=== PATIENT | male | born 1970 ===

== ENCOUNTER 2016-09-14 09:45 | Inpatient (IN) | payer OTHER ==
--- NOTE | 2016-09-14 10:17 | C.PDOC ---
History Of Present Illness 46 year old patient, with a past medical history of pulmonary embolism, CHF, kidney stones, gall bladder disease, bypass for 3 vessels about 1 year ago, prior MS and cardiac arrest, presents to the ED complaining of chest pain that began this morning. Patient denies palpitations, shortness of breath, nausea, vomiting, abdominal pain, numbness or weakness. Time Seen by Provider: 09/14/16 09:50 Chief Complaint (Nursing): Chest Pain History Per: Patient History/Exam Limitations: no limitations Onset/Duration Of Symptoms: Hrs (this morning) Current Symptoms Are (Timing): Still Present Context: Other Severity: Mild Pain Scale Rating Of: 3 Quality: "Pain" Modifying Factors: None Exacerbating Factors: None Alleviating Factors: None Recent travel outside of the [place]: No Past Medical History Reviewed: Historical Data, Nursing Documentation, Vital Signs Vital Signs: Last Vital Signs Temp 97.8 F 09/14/16 18:38 Pulse 75 09/14/16 18:38 Resp 18 09/14/16 18:38 BP 121/80 09/14/16 18:38 Pulse Ox 100 09/14/16 18:38 - Medical History PMH: CHF, Gall Bladder Disease, Kidney Stones, Pulmonary Embolism Family History: States: Unknown Family Hx - Social History Hx Alcohol Use: No Hx Substance Use: No - Immunization History Hx Tetanus Toxoid Vaccination: No Hx Influenza Vaccination: Yes Hx Pneumococcal Vaccination: No Review Of Systems Except As Marked, All Systems Reviewed And Found Negative. Cardiovascular: Positive for: Chest Pain. Negative for: Palpitations Respiratory: Negative for: Shortness of Breath Gastrointestinal: Negative for: Nausea, Vomiting, Abdominal Pain Neurological: Negative for: Weakness, Numbness Physical Exam - Physical Exam Appears: Non-toxic, No Acute Distress Skin: Warm, Dry Head: Atraumatic, Normacephalic Eye(s): bilateral: Normal Inspection, PERRL, EOMI Oral Mucosa: Moist Neck: Normal ROM, Supple Chest: Symmetrical, No Tenderness Cardiovascular: Rhythm Regular Respiratory: Normal Breath Sounds, No Rales, No Rhonchi, No Wheezing Gastrointestinal/Abdominal: Soft, No Tenderness Back: Normal Inspection, No CVA Tenderness Extremity: Normal ROM Neurological/Psych: Oriented x3, Normal Speech, Normal Cognition, Normal Motor, Normal Sensation Gait: Steady ED Course And Treatment - Laboratory Results Result Diagrams: 09/14/16 10:40 09/14/16 10:40 ECG: Interpreted By Me, Viewed By Me ECG Rhythm: Sinus Rhythm Interpretation Of ECG: T wave abnormality in the lateral leads. Q waves in inferior leads Rate From EC (bpm) O2 Sat by Pulse Oximetry: 100 (room air) Pulse Ox Interpretation: Normal Progress Note: Case was d/w who accepted patient to [facility] for observation. Disposition - Disposition Disposition: HOSPITALIZED Disposition Time: 14:52 Condition: FAIR - Clinical Impression Clinical Impression: Chest pain - PA / HEADING PINNER / Resident Statement MD/DO has reviewed & agrees with the documentation as recorded. - Scribe Statement The provider has reviewed the documentation as recorded by the Scribe Danielle Paige All medical record entries made by the Scribe were at my direction and personally dictated by me. I have reviewed the chart and agree that the record accurately reflects my personal performance of the history, physical exam, medical decision making, and the department course for this patient. I have also personally directed, reviewed, and agree with the discharge instructions and disposition. Decision To Admit - Pt Status Changed To: Hospital Disposition Of: Observation - . Bed Request Type: Telemetry Admitting Physician: Jorge Franco Patient Diagnosis: Chest pain
[2016-09-14 10:52] LABS: BASO % 0.4 % (0.0-2.0); EOS # 0.2 K/uL (0.0-0.7); EOS % 2.5 % (0.0-4.0); HEMATOCRIT 41.5 % (35.0-51.0); LYMPH % 32.2 % (20.0-40.0); MEAN CELL VOLUME 117.8 fL (80.0-94.0); MEAN CORPUSCULAR HEMOGLOBIN 39.9 pg (27.0-31.0); MEAN CORPUSCULAR HGB CONC 33.9 g/dL (33.0-37.0); MEAN PLATELET VOLUME 10.1 fL (7.2-11.7); MONO # 0.5 K/uL (0.0-0.8); MONO % 8.2 % (0.0-10.0); NRBC % 0.1 % (0.0-2.0); RED CELL DISTRIBUTION WIDTH 13.9 % (11.5-14.5); WHITE BLOOD COUNT 6.1 K/uL (4.8-10.8)
[2016-09-14 11:12] LABS: CHLORIDE 101 mmol/L (98-107); POTASSIUM 4.1 mmol/L (3.6-5.2); SODIUM 140 mmol/L (132-148)
[2016-09-14 11:14] LABS: BILIRUBIN,TOTAL 0.7 mg/dL (0.2-1.3); CARBON DIOXIDE 27 mmol/L (22-30); GFR AFRICAN-AMERICAN > 60
[2016-09-14 11:15] LABS: ALB/GLOB RATIO 2.3 (1.0-2.1); ALKALINE PHOSPHATASE 88 U/L (38-126); ALT/SGPT 44 U/L (21-72); AST/SGOT 27 U/L (17-59); BLOOD UREA NITROGEN 14 mg/dL (9-20); CALCIUM 8.9 mg/dl (8.6-10.4); GLUCOSE,RANDOM 88 mg/dL (75-110); TOTAL PROTEIN 7.5 g/dL (6.3-8.3)
--- NOTE | 2016-09-14 12:35 | RAD ---
PROCEDURE: CHEST RADIOGRAPH, 1 VIEW HISTORY: chest pain COMPARISON: None available. FINDINGS: LUNGS: Moderate venous congestion. Patchy left basilar airspace opacity. PLEURA: As above. CARDIOVASCULAR: Cardiomegaly. Status post median sternotomy and CABG. OSSEOUS STRUCTURES: No significant abnormalities. VISUALIZED UPPER ABDOMEN: Normal. OTHER FINDINGS: None. IMPRESSION: Moderate venous congestion. Patchy left basilar airspace opacity.
[2016-09-14] MEDS ORDERED: Iodixanol 320 MG/ML 100 ML BOTTLE IV ONE (13:40)
--- NOTE | 2016-09-14 14:17 | CT ---
PROCEDURE: CT Chest with contrast (Pulmonary Angiogram) HISTORY: Right CP, h/o PE COMPARISON: None available. TECHNIQUE: Axial computed tomography images were obtained of the chest in the pulmonary arterial phase of enhancement. Coronal and sagittal reformatted images were created and reviewed. Intravenous contrast dose: 100 mL Visipaque 320 Radiation dose: Total exam DLP = 421.3 mGy-cm. This CT exam was performed using one or more of the following dose reduction techniques: Automated exposure control, adjustment of the mA and/or kV according to patient size, and/or use of iterative reconstruction technique. FINDINGS: PULMONARY ARTERIES: Unremarkable. No pulmonary embolism. AORTA: No acute findings. No thoracic aortic aneurysm. LUNGS: Nonspecific mild ground-glass opacity seen. . No nodule, mass or pulmonary consolidation. PLEURAL SPACES: Unremarkable. No effusion or pneuomothorax. HEART: The heart is mildly to moderately enlarged. No significant pericardial effusion. LYMPH NODES: No lymphadenopathy. BONES, CHEST WALL: Unremarkable. No fracture or destructive lesion OTHER FINDINGS: Partially imaged small calcification at the left kidney. Correlate clinically for nephrolithiasis. IMPRESSION: No evidence of pulmonary embolus Cardiomegaly. Mild ground-glass opacity more prominent at the posterior dependent portion of the lungs may be due to pulmonary congestion. No pleural effusion.
--- NOTE | 2016-09-14 15:45 | CP.PCM.HP ---
<Jose Guadalupe Bui - Last Filed: 09/14/16 16:32> History of Present Illness - History of Present Illness History of Present Illness: CC: chest pain HPI: 46M PMHx NC s/p CABG 08/2015, PE 08/2015, current smoker presented with chest pain. Pt woke up this morning and then experienced the chest pain when he was lying on bed. Pt said chest pain was on the right with stabbing/pulling sensation and lasted 20 seconds. Pt rubbed his chest which also helped with the pain. 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 He took his ASA and the rest of his medicine but threw up after 10 minutes. Pt also said he ran out of Toprol last week. Pt has these symptoms for the past month, around 2- 3 times a week and associated with lightheadedness and blurry vision. Pt said he coughs when he lay flat but denied SOB after long walks. Pt also denied fever , chills, palpitations, SOB, diaphoresis, abdominal pain, constipation, diarrhea , urinary symptoms. Per pt, he experienced cardiac arrest in 09/09/15 and was resuscitated and intubated in [place]. Pt later had 3 vessels CABG but developed PE subsequently, and was on Coumadin for 3 months. PMHx: seen above PSHx: CABG 2015 FMHx: father had NC at 64, mother has DM Social: smoked 4 cigarettes a day for past 28 years, stopped after NC but resumed 3 months ago, denied ETOH or drugs PMD: [place] Present on Admission - Present on Admission Any Indicators Present on Admission: No Review of Systems - Constitutional Constitutional: absent: Anorexia, Fever, Weakness - EENT Eyes: Change in Vision Ears: absent: Ear Pain Nose/Mouth/Throat: absent: Mouth Pain - Cardiovascular Cardiovascular: Chest Pain, Chest Pain at Rest, Chest Pain with Activity. absent: Claudication, Diaphoresis, Dyspnea, Edema - Respiratory Respiratory: absent: Cough, Dyspnea, Wheezing - Gastrointestinal Gastrointestinal: absent: Abdominal Pain, Constipation, Diarrhea, Nausea, Vomiting - Genitourinary Genitourinary: absent: Dysuria - Neurological Neurological: absent: Abnormal Gait, Dizziness, Numbness - Psychiatric Psychiatric: absent: Anxiety Past Patient History - Past Social History Smoking Status: Light Smoker < 10 Cigarettes Daily - CARDIAC Hx Congestive Heart Failure: Yes - PULMONARY Hx Pulmonary Embolism: Yes - RENAL Hx Kidney Stones: Yes - GASTROINTESTINAL Hx Gall Bladder Disease: Yes - PSYCHIATRIC Hx Substance Use: No - SURGICAL HISTORY Hx Surgeries: Yes Hx Open Heart Surgery: Yes (CABG X4) - ANESTHESIA Hx Anesthesia: Yes Hx Anesthesia Reactions: No Meds Allergies/Adverse Reactions: Allergies Allergy/AdvReac Type Severity Reaction Status Date / Time No Known Allergies Allergy Verified 09/14/16 10:08 Physical Exam - Constitutional Appears: Non-toxic, No Acute Distress - Head Exam Head Exam: NORMAL INSPECTION, NORMOCEPHALIC - Eye Exam Eye Exam: Normal appearance Pupil Exam: NORMAL ACCOMODATION - Respiratory Exam Respiratory Exam: Clear to Auscultation Bilateral, NORMAL BREATHING PATTERN. absent: Rales, Rhonchi, Wheezes - Cardiovascular Exam Cardiovascular Exam: REGULAR RHYTHM, +S1, +S2. absent: Gallop, JVD, Rubs - GI/Abdominal Exam GI & Abdominal Exam: Normal Bowel Sounds, Soft. absent: Tenderness - Extremities Exam Extremities exam: Negative for: pedal edema - Neurological Exam Neurological exam: Alert, Oriented x3 - Psychiatric Exam Psychiatric exam: Normal Mood - Skin Skin Exam: Intact Results - Vital Signs Recent Vital Signs: Last Vital Signs Temp 97.4 F L 09/14/16 09:50 Pulse 76 09/14/16 14:42 Resp 18 09/14/16 14:42 BP 123/70 09/14/16 14:42 Pulse Ox 100 09/14/16 14:52 - Labs Result Diagrams: 09/14/16 10:40 09/14/16 10:40 Assessment & Plan - Assessment and Plan (Free Text) Assessment: Chest pain GISELE negative x1. EKG showed NSR at 71, LVH, inverted T on lateral leads and Q waves on lead III. Chest CT negative for PE. CXR showed cardiomegaly, left basilar opacity and venous congestion. Will start Lovenox 65mg SC q12H due to significant cardiac history. Cardio Dr. Mckinnon consulted, help appreciated. Tylenol PRN for pain. Continue home meds: ASA 81mg PO daily, Lasix 20mg PO daily, LIsinopril 2.5mg PO daily, Crestor 20mg PO HS, Lopressor 25mg PO q12H. F/U ECHO. F/U UDS. F/U A1c. F/U HLD. F/U TSH Hx of NC and PE See above. Vision changes Associated with lightheadedness. Currently asymptomatic. F/U head CT. F/U carotid US. Prophylactic measure Lovenox, SCD, Protonix. <JoanJorge Susan - Last Filed: 09/14/16 17:26> Results - Vital Signs Recent Vital Signs: Last Vital Signs Temp 97.4 F L 09/14/16 09:50 Pulse 76 09/14/16 14:42 Resp 18 09/14/16 14:42 BP 123/70 09/14/16 14:42 Pulse Ox 100 09/14/16 14:52 - Labs Result Diagrams: 09/14/16 10:40 09/14/16 10:40 Attending/Attestation - Attestation I have personally seen and examined this patient.: Yes I have fully participated in the care of the patient.: Yes I have reviewed all pertinent clinical information: Yes Notes (Text): 09/14/16 17:23 Medical Attending: Patient was seen and examined by me with family members present at bedside. Patient was ok with this. Agree with the above note by the medical claims representative. This is a relatively young man with an extensive cardiac history as desribed above in the resident note. Including NC, CABG, PE, and cardiac arrest. In the ER a CTA was done and was negative for PE, lung appeared to be stable as well. The first cardiac enzyme was ok. EKG showed a lot of T wave inversions as well as a Q wave presentation in lead 3 Will check cardiac enzymes, echo, and start lovenox SC BID @ 65 mg Will try to get cardiology evalutaion as well It should be noted that the patient is still smoking. I explained to family that this is a major risk factor he can modify. thank you Jorge Franco 09/14/16 17:26
[2016-09-14] MEDS ORDERED: Metoprolol Succinate 50 mg XL Tab PO SCH (16:30)
--- NOTE | 2016-09-14 17:29 | CT ---
PROCEDURE: CT HEAD WITHOUT CONTRAST. HISTORY: lightheadedness, change in vision COMPARISON: None available. TECHNIQUE: Axial computed tomography images were obtained through the head/brain without intravenous contrast. Radiation dose: Total exam DLP = 936.33 mGy-cm. This CT exam was performed using one or more of the following dose reduction techniques: Automated exposure control, adjustment of the mA and/or kV according to patient size, and/or use of iterative reconstruction technique. FINDINGS: HEMORRHAGE: No intracranial hemorrhage. BRAIN: No mass effect or edema. No atrophy or chronic microvascular ischemic changes. VENTRICLES: Unremarkable. No hydrocephalus. CALVARIUM: Unremarkable. PARANASAL SINUSES: Unremarkable as visualized. No significant inflammatory changes. MASTOID AIR CELLS: Opacification of both mastoids and partial opacification of the middle ears bilaterally suspicious for otomastoiditis. OTHER FINDINGS: None. IMPRESSION: No evidence of acute intracranial hemorrhage intracranial collection mass effect or midline shift. Suspicious for bilateral otomastoiditis.
[2016-09-14 17:37] LABS: URINE BILIRUBIN NEGATIVE (NEGATIVE); URINE BLOOD NEGATIVE (NEGATIVE); URINE COLOR Straw (YELLOW); URINE GLUCOSE (UA) NORMAL (Normal); URINE KETONE NEGATIVE (NEGATIVE); URINE LEUKOCYTE ESTERASE NEG Leu/uL (Negative); URINE PROTEIN NEGATIVE (NEGATIVE); URINE UROBILINOGEN NORMAL mg/dL (0.2-1.0); WBC URINE < 1 /hpf (0-5)
[2016-09-14] MEDS: Enoxaparin 80 mg Syringe SC SCH (17:56)
[2016-09-15 00:32] LABS: THYROID STIMULATING HORMONE 0.87 mIU/L (0.46-4.68)
[2016-09-15] MEDS: Enoxaparin 80 mg Syringe SC SCH ×2 (05:33→16:55)
[2016-09-15 06:41] LABS: BASO % 0.3 % (0.0-2.0); EOS # 0.1 K/uL (0.0-0.7); HEMATOCRIT 41.2 % (35.0-51.0); LYMPH # 2.3 K/uL (1.0-4.3); LYMPH % 35.2 % (20.0-40.0); MEAN CORPUSCULAR HEMOGLOBIN 40.9 pg (27.0-31.0); MEAN CORPUSCULAR HGB CONC 34.9 g/dL (33.0-37.0); MONO # 0.5 K/uL (0.0-0.8); MONO % 8.3 % (0.0-10.0); RED CELL DISTRIBUTION WIDTH 13.8 % (11.5-14.5); WHITE BLOOD COUNT 6.4 K/uL (4.8-10.8)
[2016-09-15 06:54] LABS: CHLORIDE 101 mmol/L (98-107); SODIUM 137 mmol/L (132-148)
[2016-09-15 06:55] LABS: POTASSIUM 3.9 mmol/L (3.6-5.2)
[2016-09-15 06:57] LABS: ALB/GLOB RATIO 1.6 (1.0-2.1); ALKALINE PHOSPHATASE 85 U/L (38-126); AST/SGOT 29 U/L (17-59); BILIRUBIN,TOTAL 0.7 mg/dL (0.2-1.3); BLOOD UREA NITROGEN 16 mg/dL (9-20); CARBON DIOXIDE 25 mmol/L (22-30); GFR AFRICAN-AMERICAN > 60; GLUCOSE,RANDOM 92 mg/dL (75-110); TOTAL PROTEIN 6.6 g/dL (6.3-8.3)
[2016-09-15 06:58] LABS: ALT/SGPT 41 U/L (21-72); CALCIUM 8.7 mg/dl (8.6-10.4)
[2016-09-15] MEDS ORDERED: Clindamycin 300 MG in Sodium Chloride 0.9% 50 ML IVPB SCH (09:15)
[2016-09-15] MEDS: Pantoprazole 40 mg EC Tab PO SCH (09:34)
[2016-09-15] MEDS: Clindamycin 600mg/50ml D5W 600 MG/50 ML VIAL IVPB SCH ×2 (09:45→17:00)
--- NOTE | 2016-09-15 16:30 | CP.PCM.PN ---
<Mk Mcarthur - Last Filed: 09/15/16 16:30> Subjective - Date & Time of Evaluation Date of Evaluation: 09/15/16 Time of Evaluation: 16:30 - Subjective Subjective: Med progress note. Attending: Dr. Caldera Pt seen and examined at bedside. No acute distress. No events overnight. CP resolved. Started iv abx for mastoiditis, ent consult pending. Objective - Vital Signs/Intake and Output Vital Signs (last 24 hours): Temp Pulse Resp BP Pulse Ox 97.5 F L 82 17 112/69 100 09/15/16 08:00 09/15/16 08:00 09/15/16 08:00 09/15/16 09:34 09/15/16 08:00 Intake and Output: 09/15/16 09/15/16 06:59 18:59 Intake Total 200 Output Total 300 Balance -100 - Medications Medications: Current Medications Acetaminophen (Tylenol 325mg Tab) 650 mg PO Q6 PRN PRN Reason: moderate pain Aspirin (Ecotrin) 81 mg PO DAILY [facility] Last Admin: 09/15/16 09:34 Dose: 81 mg Enoxaparin Sodium (Lovenox) 65 mg SC Q12H [facility] Last Admin: 09/15/16 05:33 Dose: 65 mg Furosemide (Lasix) 20 mg PO DAILY [facility] Last Admin: 09/15/16 09:34 Dose: 20 mg Clindamycin Phosphate (Cleocin) 600 mg in 50 mls @ 100 mls/hr IVPB Q8H [facility] Last Admin: 09/15/16 09:45 Dose: 100 mls/hr Lisinopril (Zestril) 2.5 mg PO DAILY [facility] Last Admin: 09/15/16 09:34 Dose: 2.5 mg Metoprolol Tartrate (Lopressor) 25 mg PO Q12H [facility] Last Admin: 09/15/16 05:30 Dose: Not Given Pantoprazole Sodium (Protonix Ec Tab) 40 mg PO DAILY [facility] Last Admin: 09/15/16 09:34 Dose: 40 mg Pneumococcal Polyvalent Vaccine (Pneumovax 23 Vaccine) 0.5 ml SC .ONCE ONE Stop: 09/16/16 10:01 Rosuvastatin Calcium (Crestor) 20 mg PO HS [facility] Last Admin: 09/14/16 23:01 Dose: 20 mg - Labs Labs: 09/15/16 06:29 09/15/16 06:29 PT 11.6 SECONDS (9.7-12.2) 09/14/16 10:40 INR 1.0 09/14/16 10:40 APTT 32 SECONDS (21-34) 09/14/16 10:40 - Constitutional Appears: Non-toxic, No Acute Distress - Head Exam Head Exam: ATRAUMATIC, NORMAL INSPECTION, NORMOCEPHALIC - Eye Exam Eye Exam: EOMI - ENT Exam ENT Exam: Mucous Membranes Moist - Neck Exam Neck Exam: Full ROM, Normal Inspection - Respiratory Exam Respiratory Exam: NORMAL BREATHING PATTERN. absent: Respiratory Distress - Cardiovascular Exam Cardiovascular Exam: +S1, +S2 - GI/Abdominal Exam GI & Abdominal Exam: Soft, Normal Bowel Sounds. absent: Tenderness - Extremities Exam Extremities Exam: Full ROM, Normal Inspection - Neurological Exam Neurological Exam: Alert, Awake, Oriented x3 - Psychiatric Exam Psychiatric exam: Normal Affect, Normal Mood - Skin Skin Exam: Dry, Intact, Normal Color, Warm Assessment and Plan - Assessment and Plan (Free Text) Assessment: This is a 46 yo male with Chest pain GISELE negative x2 EKG showed NSR at 71, LVH, inverted T on lateral leads and Q waves on lead III. Chest CT negative for PE. CXR showed cardiomegaly, left basilar opacity and venous congestion. Will start Lovenox 65mg SC q12H due to significant cardiac history. Cardio Dr. Mckinnon consulted, help appreciated. Tylenol PRN for pain. Continue home meds: ASA 81mg PO daily, Lasix 20mg PO daily, LIsinopril 2.5mg PO daily, Crestor 20mg PO HS, Lopressor 25mg PO q12H. F/U ECHO. F/U UDS>> negative F/U A1c>> 4.6 F/U lipid profile F/U TSH Hx of UT and PE See above. Ear pain secondary to B/L otomastoiditis F/U head CT>>> positive for b/l otomastoiditis will start IV clindamycin 600 mg q 8 hrs, f/u blood cultures ENT consult. Dr. Gaona. recs appreciated. F/U carotid US. Prophylactic measure Lovenox, SCD, Protonix. discussed with Dr. Caldera. <Josh Caldera - Last Filed: 10/23/16 17:09> Objective - Vital Signs/Intake and Output Vital Signs (last 24 hours): Temp Pulse Resp BP Pulse Ox 97.6 F 61 20 117/70 99 09/16/16 16:02 09/16/16 16:02 09/16/16 16:02 09/16/16 16:02 09/16/16 16:02 - Labs Labs: 09/15/16 06:29 09/15/16 06:29 PT 11.6 SECONDS (9.7-12.2) 09/14/16 10:40 INR 1.0 09/14/16 10:40 APTT 32 SECONDS (21-34) 09/14/16 10:40 Attending/Attestation - Attestation I have personally seen and examined this patient.: Yes I have fully participated in the care of the patient.: Yes I have reviewed all pertinent clinical information, including history, physical exam and plan: Yes Notes (Text): This is a 46 yo male with Chest pain need to rule out acs, ruled out pe, GISELE negative x2 EKG showed NSR at 71, LVH, inverted T on lateral leads and Q waves on lead III. Chest CT negative for PE. CXR showed cardiomegaly, left basilar opacity and venous congestion. Will start Lovenox 65mg SC q12H due to significant cardiac history. Cardio Dr. Mckinnon consulted, help appreciated. Tylenol PRN for pain. Continue home meds: ASA 81mg PO daily, Lasix 20mg PO daily, LIsinopril 2.5mg PO daily, Crestor 20mg PO HS, Lopressor 25mg PO q12H. F/U ECHO. F/U UDS>> negative F/U A1c>> 4.6 F/U lipid profile F/U TSH Hx of UT and PE See above. Ear pain secondary to B/L otomastoiditis F/U head CT>>> positive for b/l otomastoiditis will start IV clindamycin 600 mg q 8 hrs, f/u blood cultures ENT consult. Dr. Gaona. recs appreciated. F/U carotid US.
--- NOTE | 2016-09-15 21:33 | CON ---
DATE: 09/15/2016 REASON FOR CONSULTATION: Possible mastoiditis. HISTORY OF PRESENT ILLNESS: This is a 46-year-old male who complains of hearing loss on the left for 1 month on and off, mild in intensity, no pain, no discharge. PAST MEDICAL HISTORY: As noted in the chart by me. MEDICATIONS: As noted in the chart by me. PHYSICAL EXAMINATION: HEAD: Atraumatic, normocephalic. FACE: Good facial movements bilaterally. CONSTITUTIONAL: Well-developed, well-nourished. COMMUNICATION: Communicates very appropriately. EXTERNAL NOSE AND EARS: No masses, no lesions, no erythema, no edema. EARS: TM intact, mild fluid noted behind the left TM. No masses, no lesions. ORAL CAVITY AND OROPHARYNX: No masses, no lesions, no erythema, no edema. NOSE: Deviated septum, no masses, no lesions, no erythema, no edema. LIPS, GUMS: No masses, no lesions, no erythema, no edema. NECK: Supple. THYROID: No thyromegaly, no goiter. LYMPH NODES: No lymphadenopathy of the neck. CT was reviewed by me showed mastoid opacification whi ch appears to be chronic on both sides and there is mild fluid in the middle ear space on both sides. ASSESSMENT: 1. Mastoiditis is not suspected. The patient has chronic mastoid problems; however, this is nonacut e. There is no postauricular edema, no pain, no discharge and the TM is intact. The patient had a t uning fork test done, which reveals lateralized to the left side, which is the side that the patient has hearing problems. Therefore, it is confirmed that the patient has otitis media on the left and n erica endoscopy was done. This should be dictated separately, which revealed no masses in the nasopha rynx. 2. Deviated septum. PLAN: The patient should continue on antibiotics for a total of 7 days. Follow up as an outpatient. Martell Gaona MD cc: [id number] TT: 09/15/2016 21:32:08 Confirmation # [id number] Dictation # [id number] cn
[2016-09-16] MEDS: Clindamycin 600mg/50ml D5W 600 MG/50 ML VIAL IVPB SCH ×3 (01:07→17:54)
[2016-09-16] MEDS: Enoxaparin 80 mg Syringe SC SCH (05:04)
--- NOTE | 2016-09-16 06:30 | OP ---
PROCEDURE DATE: 09/15/2016 PREOPERATIVE DIAGNOSIS: POSTOPERATIVE DIAGNOSIS: PROCEDURE: Nasal endoscopy. SIGNIFICANT FINDINGS: Nasopharyngeal mass not noted. PROCEDURE: The patient was placed in a seated position. The nose was decongested using Afrin. The nasal endoscope was passed on both sides, first on the left, then on the right in the middle inferior meatus on both sides. It was also passed into the nasopharynx. No masses or lesions were noted. N o erythema or edema was noted. The scope was removed. The patient tolerated the procedure well. Martell Gaona MD cc: [id number] TT: 09/15/2016 21:53:23 tn
--- NOTE | 2016-09-16 08:43 | CARD ---
APPROVED REPORT EXAM: Two-dimensional and M-mode echocardiogram with Doppler and color Doppler. Other Information Quality : GoodRhythm : NSR INDICATION Pulmonary Embolism Chest Pain Congestive Heart Failure CABG RISK FACTORS Smoking M-Mode DIMENSIONS RVDd1.94 (2.1-3.2cm)Left Atrium (MM)4.10 (2.5-4.0cm) IVSd1.11 (0.7-1.1cm)Aortic Root3.23 (2.2-3.7cm) LVDd5.62 (4.0-5.6cm)Aortic Cusp Exc.1.80 (1.5-2.0cm) PWd1.11 (0.7-1.1cm)FS (%) 26 % LVDs4.16 (2.0-3.8cm)LVEF (%)50 (>50%) Mitral Valve MV E Gzdsxovi07.4cm/sMV A Rpfwwkvs24.5cm/sE/A ratio1.3 TDI E/Lateral E'0.0E/Medial E'0.0 Tricuspid Valve TR Peak [id number]/sTR Peak Gr.[id number] LEFT VENTRICLE The left ventricle is normal size. There is normal left ventricular wall thickness. The left ventricular function is normal. The left ventricular ejection fraction is within the normal range. The Ejection Fraction is >55%. No regional wall motion abnormalities noted. The left ventricular diastolic function is normal. No left ventricle thrombus noted on this study. There is no ventricular septal defect visualized. There is no left ventricular aneurysm. There is no mass noted in the left ventricle. RIGHT VENTRICLE The right ventricle is normal size. There is normal right ventricular wall thickness. The right ventricular systolic function is normal. ATRIA The left atrium is borderline dilated. The right atrium size is normal. The interatrial septum is intact with no evidence for an atrial septal defect. AORTIC VALVE The aortic valve is normal in structure and function. No aortic regurgitation is present. There is no aortic valvular stenosis. There is no aortic valvular vegetation. MITRAL VALVE The mitral valve is normal in structure and function. There is no evidence of mitral valve prolapse. There is no mitral valve stenosis. There is no mitral valve regurgitation noted. TRICUSPID VALVE The tricuspid valve is normal in structure and function. There is mild tricuspid regurgitation. Right ventricular systolic pressure is estimated at 30-40 mmHg. There is mild pulmonary hypertension. There is no tricuspid valve prolapse or vegetation. There is no tricuspid valve stenosis. PULMONIC VALVE The pulmonary valve is normal in structure and function. There is no pulmonic valvular regurgitation. There is no pulmonic valvular stenosis. GREAT VESSELS The aortic root is normal in size. The ascending aorta is normal in size. The pulmonary artery is normal. The IVC is normal in size and collapses >50% with inspiration. PERICARDIAL EFFUSION The pericardium appears normal. There is no pleural effusion. <Conclusion> The left ventricle is normal size. The left ventricular ejection fraction is within the normal range. The Ejection Fraction is >55%. Right ventricular systolic pressure is estimated at 30-40 mmHg. no D septum
--- NOTE | 2016-09-16 08:57 | CARD ---
APPROVED REPORT EKG Measurement Heart [id number] <Conclusion> Normal sinus rhythm Possible Left atrial enlargement Inferior infarct, age undetermined T wave abnormality, consider lateral ischemia Abnormal ECG
[2016-09-16] MEDS: Pantoprazole 40 mg EC Tab PO SCH (09:30)
[2016-09-16] MEDS ORDERED: Pneumococcal 23-Valent Vaccine SC ONE (10:00)
[2016-09-16] MEDS ORDERED: Saccharomyces Boulardi 250 mg Cap PO SCH (11:15)
--- NOTE | 2016-09-16 11:29 | CP.PCM.PN ---
<Mk Mcarthur - Last Filed: 09/16/16 11:30> Subjective - Date & Time of Evaluation Date of Evaluation: 09/16/16 Time of Evaluation: 11:30 - Subjective Subjective: Medicine progress note. Attending: Dr. Oliva Pt seen and examined at bedside. No acute distress. No events overnight, lopressor dose lowered this morning. Will repeat ekg and discuss with cardio. Pt is day 2 clindamycin. Objective - Vital Signs/Intake and Output Vital Signs (last 24 hours): Temp Pulse Resp BP Pulse Ox 97.8 F 62 19 123/70 100 09/16/16 09:46 09/16/16 09:46 09/16/16 09:46 09/16/16 09:46 09/16/16 09:46 Intake and Output: 09/16/16 09/16/16 06:59 18:59 Intake Total 120 300 Output Total 0 200 Balance 120 100 - Medications Medications: Current Medications Acetaminophen (Tylenol 325mg Tab) 650 mg PO Q6 PRN PRN Reason: moderate pain Aspirin (Ecotrin) 81 mg PO DAILY [facility] Last Admin: 09/16/16 09:29 Dose: 81 mg Enoxaparin Sodium (Lovenox) 65 mg SC Q12H [facility] Last Admin: 09/16/16 05:04 Dose: 65 mg Furosemide (Lasix) 20 mg PO DAILY [facility] Last Admin: 09/16/16 09:29 Dose: 20 mg Clindamycin Phosphate (Cleocin) 600 mg in 50 mls @ 100 mls/hr IVPB Q8H [facility] Last Admin: 09/16/16 10:00 Dose: 100 mls/hr Lisinopril (Zestril) 2.5 mg PO DAILY [facility] Last Admin: 09/16/16 09:29 Dose: 2.5 mg Metoprolol Tartrate (Lopressor) 12.5 mg PO Q12 [facility] Last Admin: 09/16/16 09:34 Dose: 12.5 mg Pantoprazole Sodium (Protonix Ec Tab) 40 mg PO DAILY [facility] Last Admin: 09/16/16 09:30 Dose: 40 mg Rosuvastatin Calcium (Crestor) 20 mg PO HS [facility] Last Admin: 09/15/16 23:45 Dose: 20 mg Saccharomyces Boulardii (Florastor) 250 mg PO BID [facility] - Labs Labs: 09/15/16 06:29 09/15/16 06:29 PT 11.6 SECONDS (9.7-12.2) 09/14/16 10:40 INR 1.0 09/14/16 10:40 APTT 32 SECONDS (21-34) 09/14/16 10:40 - Constitutional Appears: Non-toxic, No Acute Distress - Head Exam Head Exam: ATRAUMATIC, NORMAL INSPECTION, NORMOCEPHALIC - Eye Exam Eye Exam: EOMI - ENT Exam ENT Exam: Mucous Membranes Moist - Neck Exam Neck Exam: Full ROM, Normal Inspection - Respiratory Exam Respiratory Exam: NORMAL BREATHING PATTERN. absent: Respiratory Distress - Cardiovascular Exam Cardiovascular Exam: +S1, +S2, Murmur - GI/Abdominal Exam GI & Abdominal Exam: Soft, Normal Bowel Sounds. absent: Tenderness - Extremities Exam Extremities Exam: Full ROM, Normal Inspection - Neurological Exam Neurological Exam: Alert, Awake, Oriented x3 - Psychiatric Exam Psychiatric exam: Normal Affect, Normal Mood - Skin Skin Exam: Dry, Intact, Normal Color, Warm Assessment and Plan - Assessment and Plan (Free Text) Assessment: This is a 46 yo male with extensive cardiac hx including cardiac arrest, PE, CABG, [place] presenting with (1) Chest pain GISELE negative x3 EKG showed NSR at 71, LVH, inverted T on lateral leads and Q waves on lead III>> > will repeat ekg today Chest CT negative for PE. CXR showed cardiomegaly, left basilar opacity and venous congestion. Will start Lovenox 65mg SC q12H due to significant cardiac history. Cardio Dr. Mckinnon consulted, help appreciated. Tylenol PRN for pain. Continue home meds: ASA 81mg PO daily, Lasix 20mg PO daily, LIsinopril 2.5mg PO daily, Crestor 20mg PO HS, Lopressor 12.5mg PO q12H. F/U ECHO>>> normal ef with rv systolic pressure at 30-40 mm hg F/U UDS>> negative F/U A1c>> 4.6 F/U lipid profile>>> pending F/U TSH Carotid dopplers pending (2) Hx of [place] and PE See above. (3) Ear pain secondary to otitis media F/U head CT>>> suspicious for b/l otomastoiditis>> Dr. Gaona does not think pt has mastoiditis. will start IV clindamycin 600 mg q 8 hrs, f/u blood cultures>>> blood negative thus far ENT consult. Dr. Gaona. recs appreciated. F/U carotid US. Will start florastor 250 BID (4) Prophylactic measure Lovenox, SCDs, Protonix 40 mg po daily discussed with Dr. Oliva. <Lynda Oliva V - Last Filed: 09/16/16 17:54> Objective - Vital Signs/Intake and Output Vital Signs (last 24 hours): Temp Pulse Resp BP Pulse Ox 97.6 F 61 20 117/70 99 09/16/16 16:02 09/16/16 16:02 09/16/16 16:02 09/16/16 16:02 09/16/16 16:02 Intake and Output: 09/16/16 09/16/16 06:59 18:59 Intake Total 120 300 Output Total 0 200 Balance 120 100 - Medications Medications: Current Medications Acetaminophen (Tylenol 325mg Tab) 650 mg PO Q6 PRN PRN Reason: moderate pain Aspirin (Ecotrin) 81 mg PO DAILY [facility] Last Admin: 09/16/16 09:29 Dose: 81 mg Furosemide (Lasix) 20 mg PO DAILY [facility] Last Admin: 09/16/16 09:29 Dose: 20 mg Clindamycin Phosphate (Cleocin) 600 mg in 50 mls @ 100 mls/hr IVPB Q8H [facility] Last Admin: 09/16/16 10:00 Dose: 100 mls/hr Lisinopril (Zestril) 2.5 mg PO DAILY [facility] Last Admin: 09/16/16 09:29 Dose: 2.5 mg Metoprolol Tartrate (Lopressor) 12.5 mg PO Q12 [facility] Last Admin: 09/16/16 09:34 Dose: 12.5 mg Pantoprazole Sodium (Protonix Ec Tab) 40 mg PO DAILY [facility] Last Admin: 09/16/16 09:30 Dose: 40 mg Rosuvastatin Calcium (Crestor) 20 mg PO HS [facility] Last Admin: 09/15/16 23:45 Dose: 20 mg Saccharomyces Boulardii (Florastor) 250 mg PO BID [facility] - Labs Labs: 09/15/16 06:29 09/15/16 06:29 PT 11.6 SECONDS (9.7-12.2) 09/14/16 10:40 INR 1.0 09/14/16 10:40 APTT 32 SECONDS (21-34) 09/14/16 10:40 Attending/Attestation - Attestation I have personally seen and examined this patient.: Yes I have fully participated in the care of the patient.: Yes I have reviewed all pertinent clinical information, including history, physical exam and plan: Yes Notes (Text): Patient seen, examined, and case discussed with day-time resident. Patient seen this morning while in ICU Bed 3. Patient denies acute complaints. Patient reports he is feeling better. Patient recently moved from [place] to [place] and had not established care. Patient reports he had a prior appointment on the but came in to the hospital. Discussed with ICU nurse, patient was bradycardic overnight, so Lopressor 25mg PO bid was held. Patient restarted on lower dose, Lopressor 12.5mg PO bid today. Discussed with cardiology, patient stable from their standpoint for discharge. Upon discharge, patient to complete additional 5 days of Clindamycin to complete 7 days per ENT and recommended to follow-up outpatient. 1) Chest Pain * Asymptomatic * Cardiology (Dr. Mckinnon) on board-->help appreciated-->stable for discharge * EKG on admission: Flip T waves no prior EKG to compare. Repeat EKG in error please disregard. * Echocardiogram: * GISELE X3 negative * Aspirin 81mg PO daily * Lowered dose to Lopressor 12.5mg PO bid given bradycardia overnight * Crestor 20mg PO qHS * Lisinopril 2.5mg PO daily * Lasix 20mg PO daily * History: CABG in 2016 with associated cardiac arrest and PE; patient has not seen a specialty manufacturing supervisor since; recommended to establish care in the [facility] ([phone]) and will need a cardiology referral to be monitor as outpatient * Hgba1c: 4.7 (not diabetic) 2. Coronary Artery Disease; Hx of CABG (2016) * Aspirin 81mg PO daily * Lowered dose to Lopressor 12.5mg PO bid given bradycardia overnight * Crestor 20mg PO qHS * Lisinopril 2.5mg PO daily * Lasix 20mg PO daily * History: CABG in 2015 with associated cardiac arrest and PE; patient has not seen a specialty manufacturing supervisor since; recommended to establish care in the [facility] ([phone]) and will need a cardiology referral to be monitor as outpatient 3. History of Pulmonary Embolus * Per patient, he completed anticoagulation about 3-4 months 4. Otitis Media * ENT (Dr Gaona) on consult-->help appreciated-->Patient does not have acute mastoiditis per his examination * ENT recommended for 7 day total of antibiotics and follow-up outpatient * Clindamycin 300mg PO 8 hours (15 tabs/0 refills) upon discharge to complete remaining 5 days to take with yogurt 5. Disposition * Per cardiology, patient is stable for discharge. * Patient to be discharged on Aspirin, Beta-mihir, Statin, Amilcar-inhibitor, Diuretic, and 5 day course of antibiotic * Patient advised to establish care at the [facility] wherein he will need a referral to cardiology and ent.
--- NOTE | 2016-09-16 14:50 | CP.PCM.DIS ---
<Mk Mcarthur - Last Filed: 09/16/16 14:56> Provider - Provider Date of Admission: 09/14/16 16:08 Attending physician: Jorge Franco DO Consults: Consults Dr. Mckinnon- cardiology Time Spent in preparation of Discharge (in minutes): 45 Hospital Course - Lab Results Lab Results: Micro Results 09/15/16 09:07 Blood Blood Culture - Preliminary NO GROWTH AFTER 24 HOURS 09/15/16 09:07 Blood Blood Culture - Preliminary NO GROWTH AFTER 24 HOURS Most Recent Lab Values WBC 6.4 K/uL (4.8-10.8) 09/15/16 06:29 RBC 3.52 Mil/uL (4.40-5.90) L 09/15/16 06:29 Hgb 14.4 g/dL (12.0-18.0) 09/15/16 06:29 Hct 41.2 % (35.0-51.0) 09/15/16 06:29 MCV 117.0 fL (80.0-94.0) H 09/15/16 06:29 MCH 40.9 pg (27.0-31.0) H 09/15/16 06:29 MCHC 34.9 g/dL (33.0-37.0) 09/15/16 06:29 RDW 13.8 % (11.5-14.5) 09/15/16 06:29 Plt Count 148 K/uL (130-400) 09/15/16 06:29 MPV 10.0 fL (7.2-11.7) 09/15/16 06:29 Neut % (Auto) 54.2 % (50.0-75.0) 09/15/16 06:29 Lymph % (Auto) 35.2 % (20.0-40.0) 09/15/16 06:29 [place] % (Auto) 8.3 % (0.0-10.0) 09/15/16 06:29 Eos % (Auto) 2.0 % (0.0-4.0) 09/15/16 06:29 Baso % (Auto) 0.3 % (0.0-2.0) 09/15/16 06:29 Neut # 3.5 K/uL (1.8-7.0) 09/15/16 06:29 Lymph # 2.3 K/uL (1.0-4.3) 09/15/16 06:29 [place] # 0.5 K/uL (0.0-0.8) 09/15/16 06:29 Eos # 0.1 K/uL (0.0-0.7) 09/15/16 06:29 Baso # 0.0 K/uL (0.0-0.2) 09/15/16 06:29 PT 11.6 SECONDS (9.7-12.2) 09/14/16 10:40 INR 1.0 09/14/16 10:40 APTT 32 SECONDS (21-34) 09/14/16 10:40 Sodium 137 mmol/L (132-148) 09/15/16 06:29 Potassium 3.9 mmol/L (3.6-5.2) 09/15/16 06:29 Chloride 101 mmol/L (98-107) 09/15/16 06:29 Carbon Dioxide 25 mmol/L (22-30) 09/15/16 06:29 Anion Gap 15 (10-20) 09/15/16 06:29 BUN 16 mg/dL (9-20) 09/15/16 06:29 Creatinine 0.7 MG/DL (0.8-1.5) L 09/15/16 06:29 Est GFR ( Amer) > 60 09/15/16 06:29 Est GFR (Non-Af Amer) > 60 09/15/16 06:29 Random Glucose 92 mg/dL (75-110) 09/15/16 06:29 Hemoglobin A1c 4.6 % (4.2-6.5) 09/14/16 18:34 Calcium 8.7 mg/dl (8.6-10.4) 09/15/16 06:29 Total Bilirubin 0.7 mg/dL (0.2-1.3) 09/15/16 06:29 AST 29 U/L (17-59) 09/15/16 06:29 ALT 41 U/L (21-72) 09/15/16 06:29 Alkaline Phosphatase 85 U/L (38-126) 09/15/16 06:29 Total Creatine Kinase 94 U/L (55-170) 09/14/16 18:34 CK-MB (Mass) 1.26 ng/mL (0.0-3.38) 09/14/16 18:34 Troponin I < 0.0120 ng/mL (0.00-0.120) 09/15/16 10:34 Troponin I, Quant < 0.0120 ng/mL (0.00-0.120) 09/14/16 18:34 NT-Pro-B Natriuret Pep 191 pg/mL (0-450) 09/14/16 10:40 Total Protein 6.6 g/dL (6.3-8.3) 09/15/16 06:29 Albumin 4.1 g/dL (3.5-5.0) 09/15/16 06:29 Globulin 2.5 gm/dL (2.2-3.9) 09/15/16 06:29 Albumin/Globulin Ratio 1.6 (1.0-2.1) 09/15/16 06:29 Triglycerides 312 mg/dL (0-149) H 09/14/16 18:34 Cholesterol 138 mg/dL (0-199) 09/14/16 18:34 LDL Cholesterol Direct 50 mg/dL (0-129) 09/14/16 18:34 HDL Cholesterol 30 mg/dL (30-70) 09/14/16 18:34 TSH 3rd Generation 0.87 mIU/L (0.46-4.68) 09/14/16 18:34 Urine Color Straw (YELLOW) 09/14/16 17:21 Urine Clarity Clear (Clear) 09/14/16 17:21 Urine pH 5.0 (5.0-8.0) 09/14/16 17:21 Ur Specific [place] 1.008 (1.003-1.030) 09/14/16 17:21 Urine Protein Negative mg/dL (NEGATIVE) 09/14/16 17:21 Urine Glucose (UA) Normal mg/dL (Normal) 09/14/16 17:21 Urine Ketones Negative mg/dL (NEGATIVE) 09/14/16 17:21 Urine Blood Negative (NEGATIVE) 09/14/16 17:21 Urine Nitrate Negative (NEGATIVE) 09/14/16 17:21 Urine Bilirubin Negative (NEGATIVE) 09/14/16 17:21 Urine Urobilinogen Normal mg/dL (0.2-1.0) 09/14/16 17:21 Ur Leukocyte Esterase Neg Chrissy/uL (Negative) 09/14/16 17:21 Urine WBC (Auto) < 1 /hpf (0-5) 09/14/16 17:21 Ur Squamous Epith Cells < 1 /hpf (0-5) 09/14/16 17:21 Urine Opiates Screen Negative (NEGATIVE) 09/14/16 17:21 Urine Methadone Screen Negative (NEGATIVE) 09/14/16 17:21 Ur Barbiturates Screen Negative (NEGATIVE) 09/14/16 17:21 Ur Phencyclidine Scrn Negative (NEGATIVE) 09/14/16 17:21 Ur Amphetamines Screen Negative (NEGATIVE) 09/14/16 17:21 U Benzodiazepines Scrn Negative (NEGATIVE) 09/14/16 17:21 U Oth Cocaine Metabols Negative (NEGATIVE) 09/14/16 17:21 U Cannabinoids Screen Negative (NEGATIVE) 09/14/16 17:21 - Hospital Course Hospital Course: Admit date- 09/14/16 DC date- 09/16/16 Attending: Dr. Caldera/Dr. Oliva Stable upon discharge. Consults Ino- Cardiology HPI: see h/p Labs: see lab data Hospital course This is a 46 yo male with extensive cardiac hx including cardiac arrest, PE, CABG, [place] presenting with (1) Chest pain GISELE negative x3 EKG showed NSR at 71, LVH, inverted T on lateral leads and Q waves on lead III>> > will repeat ekg today Chest CT negative for PE. CXR showed cardiomegaly, left basilar opacity and venous congestion. Started Lovenox 65mg SC q12H due to significant cardiac history. Cardio Dr. Mckinnon consulted, help appreciated. Tylenol PRN was given for pain. Continue home meds: ASA 81mg PO daily, Lasix 20mg PO daily, LIsinopril 2.5mg PO daily, Crestor 20mg PO HS, Lopressor 12.5mg PO q12H (this was lowered to current dose bc of some bradycardia and low blood pressure during hospital stay) F/U ECHO>>> normal ef with rv systolic pressure at 30-40 mm hg F/U UDS>> negative F/U A1c>> 4.6 F/U lipid profile>>> pt did have elevated TGs F/U TSH>>> wnl Carotid dopplers pending (2) Hx of [place] and PE Pt was tx 3-4 months for PE and did finish tx. (3) Ear pain secondary to otitis media F/U head CT>>> suspicious for b/l otomastoiditis>> Dr. Gaona does not think pt has mastoiditis. will start IV clindamycin 600 mg q 8 hrs, f/u blood cultures>>> blood negative thus far ENT consult. Dr. Gaona. recs appreciated. F/U carotid US. Will start florastor 250 BID Pt to take PO clindamycin for addn 5 days q 8 hrs (4) Prophylactic measure Lovenox, SCDs, Protonix 40 mg po daily Discharge instructions 1. Pt is medically stable for discharge. Please take PO clindamycin for an additional 5 days. Please take with yogurt. Please f/u in clinic in [facility]. This is in the basement. Please also get referral to see cardiology. Please return if condition worsens. Discharge meds 1. ASA 81 mg PO daily 2. Lopressor 12.5 mg PO BID 3. Lasix 20 mg PO daily 4. Lisinopril 2.5 mg PO daily 5. simvastatin 80 mg PO HS 6. clindamycin 300 mg PO q 8 hrs - Date & Time of H&P Date of H&P: 09/14/16 Time of H&P: 15:41 Discharge Exam - Head Exam Head Exam: ATRAUMATIC, NORMAL INSPECTION, NORMOCEPHALIC - Eye Exam Eye Exam: EOMI - ENT Exam ENT Exam: Mucous Membranes Moist - Neck Exam Neck exam: Full Rom, Normal Inspection - Respiratory Exam Respiratory Exam: NORMAL BREATHING PATTERN, UNREMARKABLE - Cardiovascular Exam Cardiovascular Exam: +S1, +S2, Systolic Murmur - GI/Abdominal Exam GI & Abdominal Exam: Normal Bowel Sounds - Extremities Exam Extremities exam: full ROM, normal inspection - Back Exam Back exam: NORMAL INSPECTION - Neurological Exam Neurological exam: Alert, Oriented x3 - Psychiatric Exam Psychiatric exam: Normal Affect, Normal Mood - Skin Skin Exam: Dry, Intact, Normal Color, Warm Discharge Plan - Discharge Medications Prescriptions: RX: Aspirin [Ecotrin] 81 mg PO DAILY #30 RX: Clindamycin [Cleocin] 300 mg PO Q8 #15 cap RX: Furosemide [Lasix] 20 mg PO DAILY #30 RX: Lisinopril 2.5 mg PO DAILY #30 tablet Metoprolol Tartrate [Lopressor] 12.5 mg PO Q12 #60 tab RX: Simvastatin 80 mg PO DAILY #30 tablet - Follow Up Plan Condition: STABLE Disposition: HOME/ ROUTINE Instructions: Clindamycin (By mouth), Metoprolol (By mouth), Lisinopril (By mouth), Furosemide (By mouth), Simvastatin (By mouth), Heart Failure (DC), Chest Pain (DC), Heart Healthy Diet (DC) Additional Instructions: Please return if condition worsens. Pt needs to be compliant with all meds and should f/u in clinic of [facility]. This is in the basement. Please call to schedule appt. Pt will need referral to see cardiology. Pt should take PO clindamycin with yogurt for 5 additional days. Referrals: [facility] [Outside] <Lynda Oliva V - Last Filed: 09/17/16 07:08> Provider - Provider Date of Admission: 09/14/16 16:08 Attending physician: Jorge Franco, DO Hospital Course - Lab Results Lab Results: Micro Results 09/15/16 09:07 Blood Blood Culture - Preliminary NO GROWTH AFTER 24 HOURS 09/15/16 09:07 Blood Blood Culture - Preliminary NO GROWTH AFTER 24 HOURS Most Recent Lab Values WBC 6.4 K/uL (4.8-10.8) 09/15/16 06:29 RBC 3.52 Mil/uL (4.40-5.90) L 09/15/16 06:29 Hgb 14.4 g/dL (12.0-18.0) 09/15/16 06:29 Hct 41.2 % (35.0-51.0) 09/15/16 06:29 MCV 117.0 fL (80.0-94.0) H 09/15/16 06:29 MCH 40.9 pg (27.0-31.0) H 09/15/16 06:29 MCHC 34.9 g/dL (33.0-37.0) 09/15/16 06:29 RDW 13.8 % (11.5-14.5) 09/15/16 06:29 Plt Count 148 K/uL (130-400) 09/15/16 06:29 MPV 10.0 fL (7.2-11.7) 09/15/16 06:29 Neut % (Auto) 54.2 % (50.0-75.0) 09/15/16 06: Lymph % (Auto) 35.2 % (20.0-40.0) 09/15/16 06:29 [place] % (Auto) 8.3 % (0.0-10.0) 09/15/16 06:29 Eos % (Auto) 2.0 % (0.0-4.0) 09/15/16 06:29 Baso % (Auto) 0.3 % (0.0-2.0) 09/15/16 06:29 Neut # 3.5 K/uL (1.8-7.0) 09/15/16 06:29 Lymph # 2.3 K/uL (1.0-4.3) 09/15/16 06:29 [place] # 0.5 K/uL (0.0-0.8) 09/15/16 06: Eos # 0.1 K/uL (0.0-0.7) 09/15/16 06:29 Baso # 0.0 K/uL (0.0-0.2) 09/15/16 06:29 PT 11.6 SECONDS (9.7-12.2) 09/14/16 10:40 INR 1.0 09/14/16 10:40 APTT 32 SECONDS (21-34) 09/14/16 10:40 Sodium 137 mmol/L (132-148) 09/15/16 06:29 Potassium 3.9 mmol/L (3.6-5.2) 09/15/16 06:29 Chloride 101 mmol/L (98-107) 09/15/16 06:29 Carbon Dioxide 25 mmol/L (22-30) 09/15/16 06:29 Anion Gap 15 (10-20) 09/15/16 06:29 BUN 16 mg/dL (9-20) 09/15/16 06:29 Creatinine 0.7 MG/DL (0.8-1.5) L 09/15/16 06:29 Est GFR ( Amer) > 60 09/15/16 06:29 Est GFR (Non-Af Amer) > 60 09/15/16 06:29 Random Glucose 92 mg/dL (75-110) 09/15/16 06:29 Hemoglobin A1c 4.6 % (4.2-6.5) 09/14/16 18:34 Calcium 8.7 mg/dl (8.6-10.4) 09/15/16 06:29 Total Bilirubin 0.7 mg/dL (0.2-1.3) 09/15/16 06:29 AST 29 U/L (17-59) 09/15/16 06:29 ALT 41 U/L (21-72) 09/15/16 06:29 Alkaline Phosphatase 85 U/L (38-126) 09/15/16 06:29 Total Creatine Kinase 94 U/L (55-170) 09/14/16 18:34 CK-MB (Mass) 1.26 ng/mL (0.0-3.38) 09/14/16 18:34 Troponin I < 0.0120 ng/mL (0.00-0.120) 09/15/16 10:34 Troponin I, Quant < 0.0120 ng/mL (0.00-0.120) 09/14/16 18:34 NT-Pro-B Natriuret Pep 191 pg/mL (0-450) 09/14/16 10:40 Total Protein 6.6 g/dL (6.3-8.3) 09/15/16 06:29 Albumin 4.1 g/dL (3.5-5.0) 09/15/16 06:29 Globulin 2.5 gm/dL (2.2-3.9) 09/15/16 06:29 Albumin/Globulin Ratio 1.6 (1.0-2.1) 09/15/16 06:29 Triglycerides 312 mg/dL (0-149) H 09/14/16 18:34 Cholesterol 138 mg/dL (0-199) 09/14/16 18:34 LDL Cholesterol Direct 50 mg/dL (0-129) 09/14/16 18:34 HDL Cholesterol 30 mg/dL (30-70) 09/14/16 18:34 TSH 3rd Generation 0.87 mIU/L (0.46-4.68) 09/14/16 18:34 Urine Color Straw (YELLOW) 09/14/16 17:21 Urine Clarity Clear (Clear) 09/14/16 17:21 Urine pH 5.0 (5.0-8.0) 05/22/17 17:21 Ur Specific [place] 1.008 (1.003-1.030) 09/14/16 17:21 Urine Protein Negative mg/dL (NEGATIVE) 09/14/16 17:21 Urine Glucose (UA) Normal mg/dL (Normal) 09/14/16 17:21 Urine Ketones Negative mg/dL (NEGATIVE) 09/14/16 17:21 Urine Blood Negative (NEGATIVE) 09/14/16 17:21 Urine Nitrate Negative (NEGATIVE) 09/14/16 17:21 Urine Bilirubin Negative (NEGATIVE) 09/14/16 17:21 Urine Urobilinogen Normal mg/dL (0.2-1.0) 09/14/16 17:21 Ur Leukocyte Esterase Neg Chrissy/uL (Negative) 09/14/16 17:21 Urine WBC (Auto) < 1 /hpf (0-5) 09/14/16 17:21 Ur Squamous Epith Cells < 1 /hpf (0-5) 09/14/16 17:21 Urine Opiates Screen Negative (NEGATIVE) 09/14/16 17:21 Urine Methadone Screen Negative (NEGATIVE) 09/14/16 17:21 Ur Barbiturates Screen Negative (NEGATIVE) 09/14/16 17:21 Ur Phencyclidine Scrn Negative (NEGATIVE) 09/14/16 17:21 Ur Amphetamines Screen Negative (NEGATIVE) 09/14/16 17:21 U Benzodiazepines Scrn Negative (NEGATIVE) 09/14/16 17:21 U Oth Cocaine Metabols Negative (NEGATIVE) 09/14/16 17:21 U Cannabinoids Screen Negative (NEGATIVE) 09/14/16 17:21 Attending/Attestation - Attestation I have personally seen and examined this patient.: Yes I have fully participated in the care of the patient.: Yes I have reviewed all pertinent clinical information, including history, physical exam and plan: Yes Notes (Text): Patient seen, examined, and case discussed with day-time resident. Patient denies acute complaints. Patient reports he is feeling better. Discussed with cardiology, patient stable from their standpoint for discharge. Upon discharge, patient to complete additional 5 days of Clindamycin to complete 7 days per ENT and recommended to follow-up outpatient. 1) Chest Pain * Asymptomatic * Cardiology (Dr. Mckinnon) on board-->help appreciated-->stable for discharge * EKG on admission: Flip T waves no prior EKG to compare. Repeat EKG in error please disregard. * Echocardiogram: * GISELE X3 negative * Aspirin 81mg PO daily-->provided upon discharge * Lowered dose to Lopressor 12.5mg PO bid given bradycardia overnight--> provided upon discharge * Crestor 20mg PO qHS-->switched to simvastatin 80mg POqHS due to affordability upon discharge * Lisinopril 2.5mg PO daily-->provided upon discharged * Lasix 20mg PO daily-->provided upon discharge * History: CABG in 2016 with associated cardiac arrest and PE; patient has not seen a equipment technician since; recommended to establish care in the [facility] ([phone]) and will need a cardiology referral to be monitor as outpatient * Hgba1c: 4.7 (not diabetic) 2. Coronary Artery Disease; Hx of CABG (2016) * Aspirin 81mg PO daily * Lowered dose to Lopressor 12.5mg PO bid given bradycardia overnight * Crestor 20mg PO qHS * Lisinopril 2.5mg PO daily * Lasix 20mg PO daily * History: CABG in 2016 with associated cardiac arrest and PE; patient has not seen a equipment technician since; recommended to establish care in the [facility] ([phone]) and will need a cardiology referral to be monitor as outpatient 3. History of Pulmonary Embolus * Per patient, he completed anticoagulation about 3-4 months 4. Otitis Media * ENT (Dr Gaona) on consult-->help appreciated-->Patient does not have acute mastoiditis per his examination * ENT recommended for 7 day total of antibiotics and follow-up outpatient * Clindamycin 300mg PO 8 hours (15 tabs/0 refills) upon discharge to complete remaining 5 days to take with yogurt 5. Disposition * Per cardiology, patient is stable for discharge. * Patient to be discharged on 1 month supply of Aspirin, Beta-mihir, Statin, Amilcar-inhibitor, Diuretic and 5 day course of antibiotic to take with yogurt. * Patient advised to establish care at the [facility] ([phone]) wherein he will need a referral to cardiology and ent. * Patient provided work note for time during hospitalization.
[2016-09-16 16:03] VITALS: BP 117/70; PULSE 61; RESP 20; TEMP 97.6; O2SAT 99
--- NOTE | 2016-09-17 10:56 | VASCLAB ---
PROCEDURE: HISTORY: lightheadedness, change in vision COMPARISON: None available. TECHNIQUE: Grayscale and duplex Doppler evaluation of the cervical carotid and vertebral arteries were performed. The common carotid, carotid bifurcations and cervical Internal Carotid Artery (ICA) and proximal External Carotid Artery (ECA) were evaluated. The vertebral arteries were evaluated for gross patency and flow direction. Report prepared by Vitor Kim, BS, RVT FINDINGS: RIGHT CAROTID ARTERIES: 1. Common Carotid Artery: No significant focal plaque formation of the right common carotid artery. Maximum Peak Systolic velocity: 72 cm/sec: End-diastolic velocity 22 cm/sec. 2. Carotid Bifurcation: Homogeneous plaque formation. Maximum Peak Systolic velocity: cm/sec: End-diastolic velocity cm/sec. 3. Internal Carotid Artery: Minimal plaque formation of the right proximal ICA which does not result in hemodynamically significant stenosis. Plaque description: Homogeneous 3.1. Proximal Segment: Peak systolic velocity 70 cm/sec: End-diastolic velocity 26 cm/sec - % stenosis 0-15% 3.2. Middle Segment: Peak systolic velocity 63 cm/sec: End-diastolic velocity 22 cm/sec - % stenosis 0-15% 3.3. Distal Segment: Peak systolic velocity 62 cm/sec: End-diastolic velocity 21 cm/sec - % stenosis 0-15% 4. External Carotid Artery: No significant focal plaque formation. Peak systolic velocity 124 cm/sec 5. ICA/CCA Ratio: 1.0 LEFT CAROTID ARTERIES: 1. Common Carotid Artery: No significant focal plaque formation of the left common carotid artery. Maximum Peak Systolic velocity: 89 cm/sec: End-diastolic velocity 23 cm/sec. 2. Carotid Bifurcation: Homogeneous plaque formation. Maximum Peak Systolic velocity: 80 cm/sec: End-diastolic velocity 26 cm/sec. 3. Internal Carotid Artery: Minimal plaque formation of the left proximal ICA which does not result in hemodynamically significant stenosis. Plaque description: Homogeneous 3.1. Proximal Segment: Peak systolic velocity 84 cm/sec: End-diastolic velocity 28 cm/sec - % stenosis 0-15% 3.2. Middle Segment: Peak systolic velocity 83 cm/sec: End-diastolic velocity 31 cm/sec - % stenosis 0-15% 3.3. Distal Segment: Peak systolic velocity 75 cm/sec: End-diastolic velocity 28 cm/sec - % stenosis 0-15% 4. External Carotid Artery: No significant focal plaque formation. Peak systolic velocity 117 cm/sec 5. ICA/CCA Ratio: 0.9 VERTEBRAL ARTERIES: 1. Right Vertebral Artery: The right vertebral artery flow direction is antegrade. 2. Left Vertebral Artery: The left vertebral artery flow direction is antegrade. OTHER FINDINGS: 1. Right Brachial Blood pressure: 123 mmHg. 2. Left Brachial Blood pressure: mmHg. IMPRESSION: RIGHT: Duplex scan does not suggest hemodynamically significant stenosis of the right extracranial carotid arteries. LEFT: Duplex scan does not suggest hemodynamically significant stenosis of the left extracranial carotid arteries.
--- NOTE | 2016-09-17 23:02 | CARD ---
APPROVED REPORT EKG Measurement Heart [id number] <Conclusion> Poor data quality, interpretation is incomplete. Normal sinus Inferior infarct, age undetermined Recommend Repeat ECG Abnormal ECG
== END 2016-09-16 16:15 | disposition home or self-care (01) | DRG 143 ==
LOC: C.ER 09:45 → C.9E 14:51 → OBSVTOIN 16:08 → C.9I 18:53 → C.6T 09-16 09:51
PROVIDERS: ADMIT Hospitalist; ATTEND Hospitalist
PROC: 0CJY8ZZ Inspection of Mouth and Throat, Via Natural or Artificial Opening Endoscopic (ICD-10-PCS; principal; 2016-09-15)
DX: R07.89 Other chest pain (principal); H66.92 Otitis media, unspecified, left ear; J34.2 Deviated nasal septum; I25.10 Atherosclerotic heart disease of native coronary artery without angina pectoris; I25.2 Old myocardial infarction; Z86.74 Personal history of sudden cardiac arrest; Z95.1 Presence of aortocoronary bypass graft; Z86.711 Personal history of pulmonary embolism; Z87.442 Personal history of urinary calculi

== ENCOUNTER 2017-02-15 10:55 | Emergency (ER) | payer OTHER ==
[2017-02-15 11:17] VITALS: RESP 18; O2SAT 100
[2017-02-15] MEDS ORDERED: Sodium Chloride 0.9% 500 ML IV ONE (12:10)
[2017-02-15] MEDS ORDERED: Alum-Mag Hydrox-Simethicone Susp (30 mL) PO STA (12:10)
--- NOTE | 2017-02-15 12:12 | C.PDOC ---
History Of Present Illness Patient is a 46 y/o M with hx of htn, cabg with graft from lower l leg, presenting with complaint of generalized fatigue. He reports that he was at work when he felt like his BP was getting high. He reports that he has not taken bp medication in 5 days because he was not able to get his medication from the pharmacy. Also complaining of diarrhea x 3 months that he reports has been evaluated by the [facility]. Denies abdominal pain or vomiting. Reports some nausea today. Denies chest pain or shortness of breath. Triage noted involvement of legs, but patient reports b/l upper and lower extremity cramping that is positional and worse at night. Time Seen by Provider: 02/15/17 11:35 Chief Complaint (Nursing): Dizziness/Lightheaded History Per: Patient History/Exam Limitations: no limitations Onset/Duration Of Symptoms: Days (3 months. 1 day) Current Symptoms Are (Timing): Still Present Severity: Mild Recent travel outside of the [place]: No Additional History Per: Patient Past Medical History Reviewed: Historical Data, Nursing Documentation, Vital Signs Vital Signs: Last Vital Signs Temp 97.7 F 02/15/17 14:55 Pulse 63 02/15/17 14:55 Resp 18 02/15/17 14:55 BP 121/70 02/15/17 14:55 Pulse Ox 100 02/15/17 17:02 - Medical History PMH: CHF, Gall Bladder Disease, Kidney Stones, Pulmonary Embolism, Chronic Kidney Disease - [facility] Procedures INSPECTION OF MOUTH AND THROAT, ENDO (09/14/16) Family History: States: Unknown Family Hx - Social History Hx Alcohol Use: No Hx Substance Use: No - Immunization History Hx Tetanus Toxoid Vaccination: No Hx Influenza Vaccination: Yes Hx Pneumococcal Vaccination: No Review Of Systems Except As Marked, All Systems Reviewed And Found Negative. Constitutional: Negative for: Fever, Chills Eyes: Negative for: Vision Change Cardiovascular: Negative for: Chest Pain, Palpitations, Orthopnea, Edema, Light Headedness Respiratory: Negative for: Cough, Shortness of Breath, SOB with Excertion, Wheezing Gastrointestinal: Positive for: Nausea, Diarrhea. Negative for: Vomiting, Abdominal Pain, Constipation Genitourinary: Negative for: Dysuria, Frequency, Incontinence, Penile Discharge Skin: Negative for: Rash Neurological: Negative for: Weakness, Numbness, Incoordination, Confusion, Seizures, Altered Mental Status, Headache, Dizziness Psych: Negative for: Anxiety Physical Exam - Physical Exam Appears: Well, Non-toxic, No Acute Distress Skin: Warm, Dry Head: Atraumatic, Normacephalic Eye(s): bilateral: Normal Inspection, PERRL, EOMI Oral Mucosa: Moist Throat: Normal, No Erythema Neck: Normal, Supple Chest: Symmetrical Cardiovascular: Rhythm Regular, No Murmur Respiratory: Normal Breath Sounds, No Rales, No Rhonchi, No Wheezing Gastrointestinal/Abdominal: Soft, No Tenderness Back: No CVA Tenderness Extremity: Normal ROM Extremity: Left: Hips Non-Tender Pulses: Left Radial: Normal, Right Radial: Normal, Left Dorsalis Pedis: Normal, Right Dorsalis Pedis: Normal Neurological/Psych: Oriented x3, Normal Speech, Normal Cognition, Normal Cranial Nerves, Normal Motor Gait: Steady ED Course And Treatment - Laboratory Results Result Diagrams: 02/15/17 12:20 02/15/17 12:20 O2 Sat by Pulse Oximetry: 100 (RA) Pulse Ox Interpretation: Normal Medical Decision Making Medical Decision Making: Presents with diarrhea and nausea. No abdominal pain or vomiting. Plans: * EKG * Blood labs * CXR * Pepcid * Zofran * IV fluids * UA * EKG shows NSR at 68bpm, unchanged from prior on 09/14/16. Labs and ua WNL. Trop x 1 negative. PROCEDURE: CT Abdomen and Pelvis with contrast HISTORY: persistent diarrhea COMPARISON: None. TECHNIQUE: Contrast dose: 100 mL Visipaque 320 Radiation dose: Total exam DLP = 309.47 mGy-cm. This CT exam was performed using one or more of the following dose reduction techniques: Automated exposure control, adjustment of the mA and/or kV according to patient size, and/or use of iterative reconstruction technique. FINDINGS: LOWER THORAX: Calcified right lower lobe nodule abutting the major fissure (series 5, image 1 ). Consistent with calcified granuloma. No infiltrate/effusion. LIVER: Unremarkable. No gross lesion or ductal dilatation. GALLBLADDER AND BILE DUCTS: Unremarkable. PANCREAS: Unremarkable. No gross lesion or ductal dilatation. SPLEEN: Unremarkable. ADRENALS: Unremarkable. No mass. KIDNEYS AND URETERS: Unremarkable. No hydronephrosis. No solid mass. VASCULATURE: No evidence of abdominal aortic aneurysm. There is suspected dissection of the left common iliac artery. It is poorly delineated on this examination as this was not performed specifically as a CT angiogram.. Recommend vascular surgery consultation. BOWEL: Unremarkable. No obstruction. No gross mural thickening. APPENDIX: Normal appendix. PERITONEUM: Unremarkable. No free fluid. No free air. LYMPH NODES: Unremarkable. No enlarged lymph nodes. BLADDER: Unremarkable. REPRODUCTIVE: Unremarkable. BONES: Bilateral L5 spondylolysis with grade 1 L5-S1 spondylolisthesis. OTHER FINDINGS: None. IMPRESSION: No abnormality of the bowel is appreciated. There is suspected dissection of the left common iliac artery. No evidence of abdominal aortic dissection. Additional minor findings as above. Patient was given pepcid, maalox, and zofran with IVF in the ED. On reevaluation at CT he reports that all symptoms have resolved and he feels well and wants to go home. Explained the ?findiing in the L common iliac artery. Patient has normal ROM, distal pulses intact, no weakness, numbness or tingling. Called vascular assembler ping pong table, Dr. Hughes and he reports that this is likely an incidental finding. He reports that since patient is asymptomatic he can follow-up with him. Patient agrees with this plan and reports that he will follow-up and return with any worsening symptoms. Patient was given copy of CT results Disposition - Disposition Referrals: Maria M Hughes MD [Medical Doctor] - Disposition: HOME/ ROUTINE Disposition Time: 15:06 Condition: GOOD Additional Instructions: Follow up with Dr. Hughes within 1 week. Return to ED if condition worsens. Follow-up with PMD within 2 days. Forms: [facility] (Chinese) - Clinical Impression Clinical Impression: Diarrhea, Nausea - Scribe Statement The provider has reviewed the documentation as recorded by the Gioibbony gonzalez All medical record entries made by the Gioibbony were at my direction and personally dictated by me. I have reviewed the chart and agree that the record accurately reflects my personal performance of the history, physical exam, medical decision making, and the department course for this patient. I have also personally directed, reviewed, and agree with the discharge instructions and disposition.
[2017-02-15] MEDS ORDERED: Alum-Mag Hydrox-Simethicone Susp (30 mL) ONE (12:25)
[2017-02-15] MEDS ORDERED: Sodium Chloride 0.9% 1,000 ML ONE (12:25)
[2017-02-15 12:29] LABS: RBC URINE < 1 /hpf (0-3); URINE BILIRUBIN NEGATIVE (NEGATIVE); URINE BLOOD NEGATIVE (NEGATIVE); URINE COLOR Straw (YELLOW); URINE GLUCOSE (UA) NORMAL (Normal); URINE KETONE NEGATIVE (NEGATIVE); URINE LEUKOCYTE ESTERASE NEG Leu/uL (Negative); URINE PROTEIN NEGATIVE (NEGATIVE); URINE UROBILINOGEN NORMAL mg/dL (0.2-1.0); WBC URINE 1 /hpf (0-5)
[2017-02-15 12:30] LABS: BASO % 0.5 % (0.0-2.0); EOS # 0.1 K/uL (0.0-0.7); LYMPH # 1.1 K/uL (1.0-4.3); LYMPH % 22.7 % (20.0-40.0); MEAN CELL VOLUME 116.3 fL (80.0-94.0); MEAN CORPUSCULAR HEMOGLOBIN 39.7 pg (27.0-31.0); MEAN CORPUSCULAR HGB CONC 34.1 g/dL (33.0-37.0); MEAN PLATELET VOLUME 10.8 fL (7.2-11.7); MONO # 0.4 K/uL (0.0-0.8); MONO % 8.1 % (0.0-10.0); NRBC % 0.1 % (0.0-2.0); WHITE BLOOD COUNT 4.9 K/uL (4.8-10.8)
[2017-02-15 12:37] LABS: CHLORIDE 102 mmol/L (98-107)
[2017-02-15 12:38] LABS: POTASSIUM 4.1 mmol/L (3.6-5.2); SODIUM 133 mmol/L (132-148)
[2017-02-15 12:40] LABS: ALB/GLOB RATIO 2.1 (1.0-2.1); ALKALINE PHOSPHATASE 78 U/L (38-126); AST/SGOT 24 U/L (17-59); BILIRUBIN,TOTAL 0.5 mg/dL (0.2-1.3); CARBON DIOXIDE 21 mmol/L (22-30); GFR AFRICAN-AMERICAN > 60; TOTAL PROTEIN 6.9 g/dL (6.3-8.3)
[2017-02-15 12:41] LABS: ALT/SGPT 52 U/L (21-72); BLOOD UREA NITROGEN 13 mg/dL (9-20); CALCIUM 8.8 mg/dl (8.6-10.4); GLUCOSE,RANDOM 92 mg/dL (75-110); MAGNESIUM 1.8 mg/dL (1.6-2.3); PHOSPHOROUS 2.2 mg/dL (2.5-4.5)
[2017-02-15] MEDS ORDERED: Iodixanol 320 MG/ML 100 ML BOTTLE IV ONE (14:01)
--- NOTE | 2017-02-15 14:29 | CT ---
PROCEDURE: CT Abdomen and Pelvis with contrast HISTORY: persistent diarrhea COMPARISON: None. TECHNIQUE: Contrast dose: 100 mL Visipaque 320 Radiation dose: Total exam DLP = 309.47 mGy-cm. This CT exam was performed using one or more of the following dose reduction techniques: Automated exposure control, adjustment of the mA and/or kV according to patient size, and/or use of iterative reconstruction technique. FINDINGS: LOWER THORAX: Calcified right lower lobe nodule abutting the major fissure (series 5, image 1 ). Consistent with calcified granuloma. No infiltrate/effusion. LIVER: Unremarkable. No gross lesion or ductal dilatation. GALLBLADDER AND BILE DUCTS: Unremarkable. PANCREAS: Unremarkable. No gross lesion or ductal dilatation. SPLEEN: Unremarkable. ADRENALS: Unremarkable. No mass. KIDNEYS AND URETERS: Unremarkable. No hydronephrosis. No solid mass. VASCULATURE: No evidence of abdominal aortic aneurysm. There is suspected dissection of the left common iliac artery. It is poorly delineated on this examination as this was not performed specifically as a CT angiogram.. Recommend vascular surgery consultation. BOWEL: Unremarkable. No obstruction. No gross mural thickening. APPENDIX: Normal appendix. PERITONEUM: Unremarkable. No free fluid. No free air. LYMPH NODES: Unremarkable. No enlarged lymph nodes. BLADDER: Unremarkable. REPRODUCTIVE: Unremarkable. BONES: Bilateral L5 spondylolysis with grade 1 L5-S1 spondylolisthesis. OTHER FINDINGS: None. IMPRESSION: No abnormality of the bowel is appreciated. There is suspected dissection of the left common iliac artery. No evidence of abdominal aortic dissection. Additional minor findings as above.
[2017-02-15 14:55] VITALS: BP 121/70; PULSE 63; TEMP 97.7
--- NOTE | 2017-02-15 15:47 | RAD ---
Chest x-ray two views History: Epigastric pain. Comparison: 09/14/2016 Findings: Status post median sternotomy and CABG. No focal infiltrate or effusion. Heart size within normal limits. Impression: No focal infiltrate or effusion.
== END 2017-02-15 15:25 | disposition home or self-care (01) ==
LOC: C.ER 10:55
DX: R11.0 Nausea (principal); R19.7 Diarrhea, unspecified; I50.9 Heart failure, unspecified; N18.9 Chronic kidney disease, unspecified; Z86.711 Personal history of pulmonary embolism
CPT/HCPCS: 71020; 74177; 80053; 81001; 83690; 83735; 84100; 84484; 85025; 96361; 96374; 99284; J2405; J7040; Q9967

== ENCOUNTER 2017-05-31 09:45 | Observation (INO) | payer OTHER ==
[2017-05-31 09:45] VITALS: BMI 25.4
[2017-05-31] MEDS ORDERED: Aspirin 325 mg EC Tablets PO STA (11:31)
[2017-05-31 11:45] LABS: BASO % 0.7 % (0.0-2.0); EOS # 0.2 K/uL (0.0-0.7); HEMOGLOBIN 13.8 g/dL (12.0-18.0); LYMPH # 1.4 K/uL (1.0-4.3); LYMPH % 30.7 % (20.0-40.0); MEAN CELL VOLUME 117.8 fL (80.0-94.0); MEAN CORPUSCULAR HEMOGLOBIN 40.8 pg (27.0-31.0); MEAN CORPUSCULAR HGB CONC 34.7 g/dL (33.0-37.0); MEAN PLATELET VOLUME 10.7 fL (7.2-11.7); MONO # 0.5 K/uL (0.0-0.8); MONO % 9.9 % (0.0-10.0); NEUT # 2.5 K/uL (1.8-7.0); NEUT % 54.7 % (50.0-75.0); NRBC % 0.1 % (0.0-2.0); RBC 3.38 Mil/uL (4.40-5.90); RED CELL DISTRIBUTION WIDTH 14.1 % (11.5-14.5); WHITE BLOOD COUNT 4.6 K/uL (4.8-10.8)
--- NOTE | 2017-05-31 11:57 | C.PDOC ---
History Of Present Illness 46 year old male with PMHx of CAD status post CABG x 4 2 years ago presents to the ED c/o right sided chest and arm pain that started this morning. Patient states her was sleeping on his right side for most of the night, pain is mostly with movement of right arm and gets better with rest. Patient denies SOB, nausea , vomit, diarrhea, abdominal pain, diaphoresis, dizziness, headache. Time Seen by Provider: 05/31/17 10:40 Chief Complaint (Nursing): Chest Pain History Per: Patient History/Exam Limitations: no limitations Onset/Duration Of Symptoms: Days Current Symptoms Are (Timing): Still Present Quality: "Pain" Associated Symptoms: Nausea Modifying Factors: None Exacerbating Factors: Movement Alleviating Factors: Rest Recent travel outside of the [place]: No Additional History Per: Patient Past Medical History Reviewed: Historical Data, Nursing Documentation, Vital Signs Vital Signs: Last Vital Signs Temp 97.8 F 05/31/17 10:04 Pulse 62 05/31/17 14:09 Resp 18 05/31/17 14:09 BP 123/73 05/31/17 14:09 Pulse Ox 100 05/31/17 14:09 - Medical History PMH: CHF, Gall Bladder Disease, Kidney Stones, Pulmonary Embolism, Chronic Kidney Disease Surgical History: CABG (X4 2 years ago) - [facility] Procedures INSPECTION OF MOUTH AND THROAT, ENDO (09/14/16) Family History: States: Unknown Family Hx - Social History Hx Alcohol Use: No Hx Substance Use: No - Immunization History Hx Tetanus Toxoid Vaccination: No Hx Influenza Vaccination: Yes Hx Pneumococcal Vaccination: No Review Of Systems Constitutional: Negative for: Fever, Chills Cardiovascular: Positive for: Chest Pain. Negative for: Palpitations Respiratory: Negative for: Cough, Shortness of Breath Gastrointestinal: Negative for: Nausea, Vomiting, Abdominal Pain Musculoskeletal: Negative for: Back Pain Skin: Negative for: Rash Neurological: Negative for: Weakness, Numbness Physical Exam - Physical Exam Appears: Non-toxic, No Acute Distress Skin: Normal Color, Warm, Dry Head: Atraumatic, Normacephalic Eye(s): bilateral: Normal Inspection Nose: No Discharge, No Deformity Oral Mucosa: Moist Neck: Normal ROM, Supple Chest: Symmetrical Cardiovascular: Rhythm Regular, No Murmur Respiratory: Normal Breath Sounds, No Rales, No Rhonchi, No Wheezing Gastrointestinal/Abdominal: Soft, No Tenderness, No Guarding, No Rebound Extremity: Normal ROM, Tenderness (right humerus), Capillary Refill (< 2 seconds ), No Deformity, No Swelling Pulses: Left Radial: Normal, Right Radial: Normal Neurological/Psych: Oriented x3, Normal Speech, Normal Cognition Gait: Steady ED Course And Treatment - Laboratory Results Result Diagrams: 05/31/17 11:37 05/31/17 11:37 O2 Sat by Pulse Oximetry: 100 (On RA) Pulse Ox Interpretation: Normal - Radiology CXR: Viewed By Me, Read By Radiologist CXR Interpretation: Yes: Other (Median sternotomy wires with evidence CABG. Borderline cardiomegaly.) Medical Decision Making Medical Decision Making: Impression: Right sided chest pain Plan: * EKG * Labs * CXR * Aspirin 325 mg PO [address] Karthik Paige from hospitalist service; pt to be admitted to [facility] for further eval. Disposition Discussed With Dr.: Karthik Paige Doctor Will See Patient In The: Hospital - Disposition Disposition Time: 14:14 Condition: STABLE Forms: [facility] (Panamanian) - Clinical Impression Clinical Impression: Chest pain - PA / WATER SOFTENER SERVICER / Resident Statement MD/DO has reviewed & agrees with the documentation as recorded. - Scribe Statement The provider has reviewed the documentation as recorded by the Scribe García Blackmon All medical record entries made by the Scribe were at my direction and personally dictated by me. I have reviewed the chart and agree that the record accurately reflects my personal performance of the history, physical exam, medical decision making, and the department course for this patient. I have also personally directed, reviewed, and agree with the discharge instructions and disposition.
[2017-05-31 12:00] LABS: ALB/GLOB RATIO 1.5 (1.0-2.1); ALBUMIN 4.2 g/dL (3.5-5.0); ALT/SGPT 41 U/L (21-72); AST/SGOT 23 U/L (17-59); BLOOD UREA NITROGEN 15 mg/dL (9-20); CALCIUM 8.7 mg/dl (8.6-10.4); GFR AFRICAN-AMERICAN > 60; GFR NON-AFRICAN AMERICAN > 60
--- NOTE | 2017-05-31 12:09 | RAD ---
HISTORY: chest pain COMPARISON: Chest x-ray performed 02/15/17 TECHNIQUE: Chest PA and lateral FINDINGS: LUNGS: No focal consolidation. Please note that chest x-ray has limited sensitivity for the detection of pulmonary masses. PLEURA: No significant pleural effusion identified. No definite pneumothorax . CARDIOVASCULAR: Median sternotomy wires with evidence of CABG. Heart size appears borderline enlarged. OSSEOUS STRUCTURES: Degenerative changes of the spine and shoulders. VISUALIZED UPPER ABDOMEN: Elevation of the right hemidiaphragm. OTHER FINDINGS: None. IMPRESSION: Median sternotomy wires with evidence CABG. Borderline cardiomegaly.
--- NOTE | 2017-05-31 15:14 | CP.PCM.HP ---
<David Edwards - Last Filed: 05/31/17 17:07> History of Present Illness - History of Present Illness History of Present Illness: PGY-1 H&P for Dr. Chana Paige CC: Chest pain This is a 46 year old male with PMHx [place] s/p CABG ([place] in 2015), subsequent PE after CABG, hypertriglyceridemia who presents complaining of right sided chest pain that began this morning. Patient states that he had difficulty sleeping last night and turned over to sleep on his right side. Patient states that he woke up with right sided chest pain and right arm pain. It is described as a squeezing pain with no other radiation. Patient states that movement worsens his pain and rest relieves it. Patient states that he had an episode last Wednesday as well which had resolved. Patient also states that he noticed two weeks ago that his ribs are protruding on the right side. Patient has not tried any medication for it. Patient denies fevers, chills, palpitations , dyspnea, pedal edema. PMHx: [place], CAD with 4 vessel disease s/p CABG, PE (in 2016 after CABG. Treated with 3 months of Coumadin) PSHx: CABG in 2016 Allergies: NKDA Social: Smokes 5 cigarettes daily. Has smoked for 28 years; quit briefly after previous hospitalization in August 2016 but has since resumed. Denies alcohol, drugs. Lives with his 2 children. Works as a airplane mechanic apprentice. Family Hx: Father from [place] at age 63. Mother alive with DM. PMD: Dr. Grover Home meds: ASA 81 mg PO daily, Lisinopril 2.5 mg PO daily, Lasix 20 mg PO daily , Metoprolol Tartrate 12.5 mg PO BID, Simvastatin 80 mg PO daily, Omeprazole Delayed release 20 mg PO daily, [place] 3 fatty acids Code status: Full code Point of contact: Patient's friend Joel: [phone] Present on Admission - Present on Admission Any Indicators Present on Admission: No Review of Systems - Constitutional Constitutional: absent: Chills, Fever - EENT Eyes: absent: Change in Vision Ears: absent: Decreased Hearing Nose/Mouth/Throat: absent: Nasal Congestion - Cardiovascular Cardiovascular: Chest Pain. absent: Dyspnea, Edema, Palpitations - Respiratory Respiratory: absent: Cough, Dyspnea, Wheezing - Gastrointestinal Gastrointestinal: absent: Abdominal Pain, Constipation, Diarrhea, Nausea, Vomiting - Genitourinary Genitourinary: absent: Dysuria - Musculoskeletal Musculoskeletal: absent: Back Pain Additional comments: Right arm pain. Elevated ribs on the right side. - Integumentary Integumentary: absent: Rash - Neurological Neurological: absent: Dizziness, Headaches, Weakness - Psychiatric Psychiatric: absent: Anxiety - Endocrine Endocrine: absent: Fatigue, Palpitations Past Patient History - Past Medical History & Family History Past Medical History?: Yes - Past Social History Smoking Status: Light Smoker < 10 Cigarettes Daily - CARDIAC Hx Congestive Heart Failure: Yes - PULMONARY Hx Pulmonary Embolism: Yes - NEUROLOGICAL Hx Neurological Disorder: No - HEENT Hx HEENT Problems: No - RENAL Hx Chronic Kidney Disease: Yes Hx Kidney Stones: Yes - ENDOCRINE/METABOLIC Hx Endocrine Disorders: No - HEMATOLOGICAL/ONCOLOGICAL Hx Blood Disorders: No - INTEGUMENTARY Hx Dermatological Problems: No - MUSCULOSKELETAL/RHEUMATOLOGICAL Hx Musculoskeletal Disorders: No Hx Falls: No - GASTROINTESTINAL Hx Gall Bladder Disease: Yes - GENITOURINARY/GYNECOLOGICAL Hx Genitourinary Disorders: No - PSYCHIATRIC Hx Substance Use: No - SURGICAL HISTORY Hx Coronary Artery Bypass Graft: Yes (X4 2 years ago) - ANESTHESIA Hx Anesthesia: Yes Hx Anesthesia Reactions: No Hx Malignant Hyperthermia: No Meds Allergies/Adverse Reactions: Allergies Allergy/AdvReac Type Severity Reaction Status Date / Time No Known Allergies Allergy Verified 05/31/17 10:12 Physical Exam - Constitutional Appears: No Acute Distress - Head Exam Head Exam: ATRAUMATIC, NORMOCEPHALIC - Eye Exam Eye Exam: EOMI, PERRL - ENT Exam ENT Exam: Mucous Membranes Moist - Respiratory Exam Respiratory Exam: Clear to Auscultation Bilateral, NORMAL BREATHING PATTERN. absent: Rales, Rhonchi, Wheezes - Cardiovascular Exam Cardiovascular Exam: REGULAR RHYTHM, +S1, +S2 Additional comments: Chest pain not reproducible, but ribs were protruding anteriorly on the right side of the chest wall lateral to the sternum. - GI/Abdominal Exam GI & Abdominal Exam: Normal Bowel Sounds, Soft. absent: Distended, Firm, Guarding, Tenderness - Extremities Exam Extremities exam: Positive for: normal capillary refill, pedal pulses present. Negative for: pedal edema, tenderness - Neurological Exam Neurological exam: Alert, CN II-XII Intact, Oriented x3 - Psychiatric Exam Psychiatric exam: Normal Affect, Normal Mood - Skin Skin Exam: Dry, Warm Results - Vital Signs Recent Vital Signs: Last Vital Signs Temp 97.8 F 05/31/17 10:04 Pulse 62 05/31/17 14:09 Resp 18 05/31/17 14:09 BP 123/73 05/31/17 14:09 Pulse Ox 100 05/31/17 14:14 - Labs Result Diagrams: 05/31/17 11:37 05/31/17 11:37 Labs: Laboratory Results - last 24 hr 05/31/17 05/31/17 11:37 11:37 WBC 4.6 L RBC 3.38 L Hgb 13.8 Hct 39.8 MCV 117.8 H MCH 40.8 H MCHC 34.7 RDW 14.1 Plt Count 133 MPV 10.7 Neut % (Auto) 54.7 Lymph % (Auto) 30.7 [place] % (Auto) 9.9 Eos % (Auto) 4.0 Baso % (Auto) 0.7 Neut # (Auto) 2.5 Lymph # (Auto) 1.4 [place] # (Auto) 0.5 Eos # (Auto) 0.2 Baso # (Auto) 0.0 Differential Comment Sodium 137 Potassium 4.0 Chloride 101 Carbon Dioxide 26 Anion Gap 14 BUN 15 Creatinine 0.6 L Est GFR ( Amer) > 60 Est GFR (Non-Af Amer) > 60 Random Glucose 103 Calcium 8.7 Total Bilirubin 0.5 AST 23 ALT 41 Alkaline Phosphatase 78 Troponin I < 0.0120 Total Protein 7.0 Albumin 4.2 Globulin 2.8 Albumin/Globulin Ratio 1.5 Assessment & Plan - Assessment and Plan (Free Text) Plan: Atypical Chest Pain in Hx of CAD/[place] s/p CABG in 2015 EKG in ED-NSR, no changes from prior EKG in January 2017 CXR showing borderline cardiomegaly Echo 09/14/16 shows Normal Left Ventricular function with EF >55%. Cardiology consult, Dr. Walton, help appreciated f/u GISELE x2 f/u EKG x2 Resumed home Lopressor 12.5 mg PO BID Resumed home Lasix 20 mg PO daily Resumed home Lisinopril 2.5 mg PO daily Resumed home ASA 81 mg PO daily Simvastatin not on formulary. Crestor 20 mg PO HS started. Hgb A1c 4.9 on 05/17/17 TSH 0.42 on 05/17/17 Free T4 1.13 on 05/17/17 History of Hypertriglyceridemia Started Lovaza 1 gm daily Triglycerides 172 on 05/17/17 Prophylactic Measure Protonix 40 mg PO daily Heparin 5000 units SC Q8H SCDs Heart Healthy 2 gm sodium diet Case DW Dr. Chana Paige Davidfrancisco Edwards PGY-1 <Karthik Paige - Last Filed: 05/31/17 20:41> Results - Vital Signs Recent Vital Signs: Last Vital Signs Temp 97.9 F 05/31/17 17:00 Pulse 73 05/31/17 17:00 Resp 20 05/31/17 17:00 BP 125/71 05/31/17 17:00 Pulse Ox 100 05/31/17 17:00 - Labs Result Diagrams: 05/31/17 11:37 05/31/17 11:37 Labs: Laboratory Results - last 24 hr 05/31/17 05/31/17 05/31/17 11:37 11:37 19:00 WBC 4.6 L RBC 3.38 L Hgb 13.8 Hct 39.8 MCV 117.8 H MCH 40.8 H MCHC 34.7 RDW 14.1 Plt Count 133 MPV 10.7 Neut % (Auto) 54.7 Lymph % (Auto) 30.7 [place] % (Auto) 9.9 Eos % (Auto) 4.0 Baso % (Auto) 0.7 Neut # (Auto) 2.5 Lymph # (Auto) 1.4 [place] # (Auto) 0.5 Eos # (Auto) 0.2 Baso # (Auto) 0.0 Differential Comment Sodium 137 Potassium 4.0 Chloride 101 Carbon Dioxide 26 Anion Gap 14 BUN 15 Creatinine 0.6 L Est GFR ( Amer) > 60 Est GFR (Non-Af Amer) > 60 Random Glucose 103 Calcium 8.7 Total Bilirubin 0.5 AST 23 ALT 41 Alkaline Phosphatase 78 Total Creatine Kinase 86 CK-MB (Mass) 0.81 Troponin I < 0.0120 < 0.0120 Total Protein 7.0 Albumin 4.2 Globulin 2.8 Albumin/Globulin Ratio 1.5 Attending/Attestation - Attestation I have personally seen and examined this patient.: Yes I have fully participated in the care of the patient.: Yes I have reviewed all pertinent clinical information: Yes Notes (Text): 05/31/17 20:41 Patient was seen and examined in the ER shortly after the resident. History, exam, assessment and plan were gone over with the resident. Karthik Paige D.O.
[2017-05-31 18:21] VITALS: RESP 20
[2017-05-31 19:30] LABS: CK-MB 0.81 ng/mL (0.0-3.38)
[2017-05-31] MEDS: Omega-3-Acid Ethyl Esters 1 GM Cap PO SCH (22:09)
[2017-06-01 00:31] LABS: CK-MB 0.73 ng/mL (0.0-3.38)
[2017-06-01 07:24] LABS: BASO % 0.5 % (0.0-2.0); EOS # 0.2 K/uL (0.0-0.7); EOS % 3.2 % (0.0-4.0); LYMPH # 2.1 K/uL (1.0-4.3); LYMPH % 36.3 % (20.0-40.0); MEAN CELL VOLUME 117.5 fL (80.0-94.0); MEAN CORPUSCULAR HEMOGLOBIN 40.5 pg (27.0-31.0); MEAN CORPUSCULAR HGB CONC 34.5 g/dL (33.0-37.0); MEAN PLATELET VOLUME 10.9 fL (7.2-11.7); MONO # 0.5 K/uL (0.0-0.8); NEUT # 2.9 K/uL (1.8-7.0); NRBC % 0.1 % (0.0-2.0); RBC 3.46 Mil/uL (4.40-5.90); RED CELL DISTRIBUTION WIDTH 13.9 % (11.5-14.5); WHITE BLOOD COUNT 5.7 K/uL (4.8-10.8)
[2017-06-01 08:40] LABS: ALB/GLOB RATIO 1.5 (1.0-2.1); ALBUMIN 3.9 g/dL (3.5-5.0); ALT/SGPT 40 U/L (21-72); AST/SGOT 31 U/L (17-59); BLOOD UREA NITROGEN 16 mg/dL (9-20); CALCIUM 8.7 mg/dl (8.6-10.4); GFR AFRICAN-AMERICAN > 60; GFR NON-AFRICAN AMERICAN > 60; MAGNESIUM 1.8 mg/dL (1.6-2.3)
[2017-06-01 09:23] VITALS: BP 119/69
[2017-06-01] MEDS: Omega-3-Acid Ethyl Esters 1 GM Cap PO SCH (09:23)
[2017-06-01 09:36] VITALS: PULSE 69; TEMP 98
[2017-06-01] MEDS ORDERED: Pantoprazole 40 mg EC Tab PO SCH (10:00)
--- NOTE | 2017-06-01 11:50 | CARD ---
APPROVED REPORT EKG Measurement Heart [id number] [place] 150P43 [id number] <Conclusion> Sinus bradycardia Inferior infarct, age undetermined Anterolateral infarct, age undetermined Abnormal ECG
--- NOTE | 2017-06-01 11:50 | CARD ---
APPROVED REPORT EKG Measurement Heart [id number] [place] 142P62 [id number] <Conclusion> Normal sinus rhythm Inferior infarct, age undetermined Abnormal ECG
--- NOTE | 2017-06-01 14:56 | CP.PCM.DIS ---
<DaleRadhan - Last Filed: 06/01/17 17:42> Provider - Provider Date of Admission: 05/31/17 14:15 Attending physician: Karthik Paige MD Primary care physician: PMD: Dr. Grover Consults: Cardiology: Dr. Walton Time Spent in preparation of Discharge (in minutes): 45 Hospital Course - Lab Results Lab Results: Most Recent Lab Values WBC 5.7 K/uL (4.8-10.8) 06/01/17 07:07 RBC 3.46 Mil/uL (4.40-5.90) L 06/01/17 07:07 Hgb 14.0 g/dL (12.0-18.0) 06/01/17 07:07 Hct 40.7 % (35.0-51.0) 06/01/17 07:07 MCV 117.5 fL (80.0-94.0) H 06/01/17 07:07 MCH 40.5 pg (27.0-31.0) H 06/01/17 07:07 MCHC 34.5 g/dL (33.0-37.0) 06/01/17 07:07 RDW 13.9 % (11.5-14.5) 06/01/17 07:07 Plt Count 132 K/uL (130-400) 06/01/17 07:07 MPV 10.9 fL (7.2-11.7) 06/01/17 07:07 Neut % (Auto) 51.0 % (50.0-75.0) 06/01/17 07:07 Lymph % (Auto) 36.3 % (20.0-40.0) 06/01/17 07:07 [place] % (Auto) 9.0 % (0.0-10.0) 06/01/17 07:07 Eos % (Auto) 3.2 % (0.0-4.0) 06/01/17 07:07 Baso % (Auto) 0.5 % (0.0-2.0) 06/01/17 07:07 Neut # (Auto) 2.9 K/uL (1.8-7.0) 06/01/17 07:07 Lymph # (Auto) 2.1 K/uL (1.0-4.3) 06/01/17 07:07 [place] # (Auto) 0.5 K/uL (0.0-0.8) 06/01/17 07:07 Eos # (Auto) 0.2 K/uL (0.0-0.7) 06/01/17 07:07 Baso # (Auto) 0.0 K/uL (0.0-0.2) 06/01/17 07:07 Differential Comment 05/31/17 11:37 Sodium 139 mmol/L (132-148) 06/01/17 07:07 Potassium 3.8 mmol/L (3.6-5.2) 06/01/17 07:07 Chloride 105 mmol/L (98-107) 06/01/17 07:07 Carbon Dioxide 24 mmol/L (22-30) 06/01/17 07:07 Anion Gap 14 (10-20) 06/01/17 07:07 BUN 16 mg/dL (9-20) 06/01/17 07:07 Creatinine 0.7 mg/dL (0.8-1.5) L 06/01/17 07:07 Est GFR ( Amer) > 60 06/01/17 07:07 Est GFR (Non-Af Amer) > 60 06/01/17 07:07 Random Glucose 94 mg/dL (75-110) 06/01/17 07:07 Calcium 8.7 mg/dl (8.6-10.4) 06/01/17 07:07 Phosphorus 2.7 mg/dL (2.5-4.5) 06/01/17 07:07 Magnesium 1.8 mg/dL (1.6-2.3) 06/01/17 07:07 Total Bilirubin 0.3 mg/dL (0.2-1.3) 06/01/17 07:07 AST 31 U/L (17-59) 06/01/17 07:07 ALT 40 U/L (21-72) 06/01/17 07:07 Alkaline Phosphatase 94 U/L (38-126) 06/01/17 07:07 Total Creatine Kinase 78 U/L (55-170) 06/01/17 00:01 CK-MB (Mass) 0.73 ng/mL (0.0-3.38) 06/01/17 00:01 Troponin I < 0.0120 ng/mL (0.00-0.120) 06/01/17 00:01 Total Protein 6.5 g/dL (6.3-8.3) 06/01/17 07:07 Albumin 3.9 g/dL (3.5-5.0) 06/01/17 07:07 Globulin 2.6 gm/dL (2.2-3.9) 06/01/17 07:07 Albumin/Globulin Ratio 1.5 (1.0-2.1) 06/01/17 07:07 - Hospital Course Hospital Course: Discharge Summary PMD:Dr. Grover Consults: Cardiology: Anton PRINCIPAL DISCHARGE DIAGNOSES: history of PE history of [place] Hypertriglyceridemia CC: Chest pain HISTORY OF PRESENT ILLNESS:This is a 46 year old male with PMHx [place] s/p CABG ( [place] in 2015), subsequent PE after CABG, hypertriglyceridemia who presents complaining of right sided chest pain that began this morning. Patient states that he had difficulty sleeping last night and turned over to sleep on his right side. Patient states that he woke up with right sided chest pain and right arm pain. It is described as a squeezing pain with no other radiation. Patient states that movement worsens his pain and rest relieves it. Patient states that he had an episode last Wednesday as well which had resolved. Patient also states that he noticed two weeks ago that his ribs are protruding on the right side. Patient has not tried any medication for it. Patient denies fevers, chills, palpitations, dyspnea, pedal edema. PMHx: [place], CAD with 4 vessel disease s/p CABG, PE (in 2016 after CABG. Treated with 3 months of Coumadin) PSHx: CABG in 2016 Allergies: NKDA Social: Smokes 5 cigarettes daily. Has smoked for 28 years; quit briefly after previous hospitalization in August 2016 but has since resumed. Denies alcohol, drugs. Lives with his 2 children. Works as a painter and body mechanic apprentice. Family Hx: Father from [place] at age 63. Mother alive with DM. PMD: Dr. Grover Home meds: ASA 81 mg PO daily, Lisinopril 2.5 mg PO daily, Lasix 20 mg PO daily , Metoprolol Tartrate 12.5 mg PO BID, Simvastatin 80 mg PO daily, Omeprazole Delayed release 20 mg PO daily, [place] 3 fatty acids Code status: Full code Point of contact: Patient's friend Joel: [phone] SUMMARY OF COURSE: Jose F Redman is a 46 year old male who was admitted to [facility] on 05/31/17-06/01/17. Cardiology was consulted while he was admitted. While admitted the patient had blood work done. His cardiac enzymes (Troponins) were negative times three. The patient was started on medicines including, lopressor, lisinopril, crestor, lasix, asa, lovaza, protonix and heparin. Patient signed out AMA. Advised the patient to stay as he had yet to be seen by Dr. Walton. Also explained past risk factors increased his chances for another event. The patient understood the risks and still decided to leave. Imaging: EKG (05/31/17): NSR, inferior infarct, age undetermined. HR 65 EKG (05/31/17): SINUS bradycardia, inferior infarct, age undetermined, anterolateral infarct, age undetermined. HR.55 Chest xray: (05/31/17): median sternotomy, with evidence of CABG, borderline cardiomegaly Discharge Exam - Head Exam Head Exam: ATRAUMATIC, NORMOCEPHALIC Discharge Plan - Follow Up Plan Condition: STABLE Disposition: AGAINST MEDICAL ADVICE <Karthik Paige - Last Filed: 06/01/17 18:46> Provider - Provider Date of Admission: 05/31/17 14:15 Attending physician: Karthik Paige MD Hospital Course - Lab Results Lab Results: Most Recent Lab Values WBC 5.7 K/uL (4.8-10.8) 06/01/17 07:07 RBC 3.46 Mil/uL (4.40-5.90) L 06/01/17 07:07 Hgb 14.0 g/dL (12.0-18.0) 06/01/17 07:07 Hct 40.7 % (35.0-51.0) 06/01/17 07:07 MCV 117.5 fL (80.0-94.0) H 06/01/17 07:07 MCH 40.5 pg (27.0-31.0) H 06/01/17 07:07 MCHC 34.5 g/dL (33.0-37.0) 06/01/17 07:07 RDW 13.9 % (11.5-14.5) 06/01/17 07:07 Plt Count 132 K/uL (130-400) 06/01/17 07:07 MPV 10.9 fL (7.2-11.7) 06/01/17 07:07 Neut % (Auto) 51.0 % (50.0-75.0) 06/01/17 07:07 Lymph % (Auto) 36.3 % (20.0-40.0) 06/01/17 07:07 [place] % (Auto) 9.0 % (0.0-10.0) 06/01/17 07:07 Eos % (Auto) 3.2 % (0.0-4.0) 06/01/17 07:07 Baso % (Auto) 0.5 % (0.0-2.0) 06/01/17 07:07 Neut # (Auto) 2.9 K/uL (1.8-7.0) 06/01/17 07:07 Lymph # (Auto) 2.1 K/uL (1.0-4.3) 06/01/17 07:07 [place] # (Auto) 0.5 K/uL (0.0-0.8) 06/01/17 07:07 Eos # (Auto) 0.2 K/uL (0.0-0.7) 06/01/17 07:07 Baso # (Auto) 0.0 K/uL (0.0-0.2) 06/01/17 07:07 Differential Comment 05/31/17 11:37 Sodium 139 mmol/L (132-148) 06/01/17 07:07 Potassium 3.8 mmol/L (3.6-5.2) 06/01/17 07:07 Chloride 105 mmol/L (98-107) 06/01/17 07:07 Carbon Dioxide 24 mmol/L (22-30) 06/01/17 07:07 Anion Gap 14 (10-20) 06/01/17 07:07 BUN 16 mg/dL (9-20) 06/01/17 07:07 Creatinine 0.7 mg/dL (0.8-1.5) L 06/01/17 07:07 Est GFR ( Amer) > 60 06/01/17 07:07 Est GFR (Non-Af Amer) > 60 06/01/17 07:07 Random Glucose 94 mg/dL (75-110) 06/01/17 07:07 Calcium 8.7 mg/dl (8.6-10.4) 06/01/17 07:07 Phosphorus 2.7 mg/dL (2.5-4.5) 06/01/17 07:07 Magnesium 1.8 mg/dL (1.6-2.3) 06/01/17 07:07 Total Bilirubin 0.3 mg/dL (0.2-1.3) 06/01/17 07:07 AST 31 U/L (17-59) 06/01/17 07:07 ALT 40 U/L (21-72) 06/01/17 07:07 Alkaline Phosphatase 94 U/L (38-126) 06/01/17 07:07 Total Creatine Kinase 78 U/L (55-170) 06/01/17 00:01 CK-MB (Mass) 0.73 ng/mL (0.0-3.38) 06/01/17 00:01 Troponin I < 0.0120 ng/mL (0.00-0.120) 06/01/17 00:01 Total Protein 6.5 g/dL (6.3-8.3) 06/01/17 07:07 Albumin 3.9 g/dL (3.5-5.0) 06/01/17 07:07 Globulin 2.6 gm/dL (2.2-3.9) 06/01/17 07:07 Albumin/Globulin Ratio 1.5 (1.0-2.1) 06/01/17 07:07 Attending/Attestation - Attestation I have personally seen and examined this patient.: No I have fully participated in the care of the patient.: Yes I have reviewed all pertinent clinical information, including history, physical exam and plan: Yes Notes (Text): 06/01/17 18:46 Patient was not able to be seen on 06/01/17 as he signed AMA before I had a chance to evaluate him. Karthik Paige D.O.
[2017-06-01 18:25] VITALS: O2SAT 100
--- NOTE | 2017-06-02 14:41 | CARD ---
APPROVED REPORT EKG Measurement Heart [id number] [place] 140P55 [id number] <Conclusion> Normal sinus rhythm Left axis deviation Inferior infarct, age undetermined Abnormal ECG
== END 2017-06-01 13:50 | disposition left against medical advice (07) ==
LOC: C.ER 09:45 → C.9E 14:15 → C.6T 16:18
PROVIDERS: ADMIT Family Medicine; ATTEND Family Medicine
DX: R07.89 Other chest pain (principal); M79.601 Pain in right arm; E78.1 Pure hyperglyceridemia; F17.210 Nicotine dependence, cigarettes, uncomplicated; I25.10 Atherosclerotic heart disease of native coronary artery without angina pectoris; I25.2 Old myocardial infarction; I50.9 Heart failure, unspecified; N18.9 Chronic kidney disease, unspecified; Z79.82 Long term (current) use of aspirin; Z79.899 Other long term (current) drug therapy; Z86.711 Personal history of pulmonary embolism; Z87.442 Personal history of urinary calculi; Z95.1 Presence of aortocoronary bypass graft
CPT/HCPCS: 36415; 71046; 80053; 83735; 84100; 84484; 85025; 93005; 99285; G0378; J1644

== ENCOUNTER 2018-01-29 10:45 | Emergency (ER) | payer OTHER ==
[2018-01-29 10:45] VITALS: BMI 25.9
[2018-01-29 10:55] VITALS: TEMP 98.5; O2SAT 100
[2018-01-29 11:08] VITALS: RESP 18
--- NOTE | 2018-01-29 11:14 | C.PDOC ---
History Of Present Illness 47 year old presents to ED complaining of pain to right wrist. Patient states that he was working with a drill yesterday when it suddenly turned causing his right wrist to also turn. Patient reports he has been having pain to his right wrist since. Denies fever, chills, weakness, numbness. Of note: Patient speaks Emirati and clinical partner Jacque translated. Time Seen by Provider: 01/29/18 11:10 Chief Complaint (Nursing): Upper Extremity Problem/Injury History Per: Clinic Manager (Clincial partner Jacque) History/Exam Limitations: no limitations Onset/Duration Of Symptoms: Days Current Symptoms Are (Timing): Still Present Past Medical History Reviewed: Historical Data, Nursing Documentation, Vital Signs Vital Signs: Last Vital Signs Temp 98.5 F 01/29/18 11:02 Pulse 58 L 01/29/18 11:02 Resp 18 01/29/18 11:02 BP 138/74 01/29/18 11:02 Pulse Ox 100 01/29/18 11:02 - Medical History PMH: CHF, Gall Bladder Disease, HTN, Hypercholesterolemia, Kidney Stones, Pulmonary Embolism, Chronic Kidney Disease Surgical History: CABG (X4 2 years ago) - [facility] INSPECTION OF MOUTH AND THROAT, ENDO (09/14/16) Family History: States: No Known Family Hx - Social History Hx Alcohol Use: No Hx Substance Use: No - Immunization History Hx Tetanus Toxoid Vaccination: No Hx Influenza Vaccination: Yes Hx Pneumococcal Vaccination: No Review Of Systems Except As Marked, All Systems Reviewed And Found Negative. Constitutional: Negative for: Fever, Chills Musculoskeletal: Positive for: Other (Pain to right wrist) Neurological: Negative for: Weakness, Numbness Physical Exam - Physical Exam Appears: Non-toxic, No Acute Distress Skin: Warm, Dry Head: Atraumatic, Normacephalic Eye(s): bilateral: Normal Inspection Chest: Symmetrical, No Deformity Cardiovascular: Rhythm Regular Respiratory: Normal Breath Sounds Extremity: No Normal ROM (Decreased range of motion to right wrist. Normal pulses.), Other (Pain to palpation of right dorsal radius and ulnar.) Pulses: Right Radial: Normal Neurological/Psych: Oriented x3 ED Course And Treatment O2 Sat by Pulse Oximetry: 100 (RA) Pulse Ox Interpretation: Normal - Other Rad X-ray right wrist X-Ray: Interpreted by Me, Viewed By Me Interpretation: FINDINGS: BONES: Normal. No fracture. There appears to be small nonspecific benign cystic changes within the navicular and possibly the lunate and capitate.. JOINTS: Normal. No dislocation. SOFT TISSUES: Normal. OTHER FINDINGS: None. IMPRESSION: No evidence of acute displaced fracture nor dislocation. Suspect small cystic changes within the navicular and possibly within the lunate and capitate. If symptoms persist or occult fracture s uspected clinically, recommend repeat radiographs in 5-10 days as most fractures should become radiographically evident in this timeframe. Reassessment Condition: Improved Medical Decision Making Medical Decision Making: Plan: * x-ray right wrist * Ibuprofen Pt was placed in sugar tong spling and sling by CP and checked by me. Disposition Counseled Patient/Family Regarding: Studies Performed, Diagnosis, Need For Followup, Rx Given - Disposition Referrals: Martín Zimmerman MD [Staff Provider] - [facility] [Outside] [facility] [Outside] Disposition: HOME/ ROUTINE Disposition Time: 12:06 Condition: STABLE Additional Instructions: FOLLOW UP WITH DR ZIMMERMAN NEXT WEEK FOR RE-EVALUATION AND OFFICIAL WRIST XRAY REPORT. IF SYMPTOMS GET WORSE OR ANY NEW CONCERNING SYMPTOMS DEVELOP RETURN TO ED. Prescriptions: Ibuprofen [Motrin Tab] 1 tab PO Q6H PRN #15 tab PRN Reason: Pain, Moderate (4-7) Instructions: Common Wrist Injuries (DC) Forms: Gen Discharge Inst Emirati, [facility] (Belizean), Work Excuse Print Language: YORUBA - Clinical Impression Clinical Impression: Wrist injury - PA / GROUNDS KEEPER / Resident Statement MD/DO has reviewed & agrees with the documentation as recorded. - Scribe Statement The provider has reviewed the documentation as recorded by the Scribe Avni Martinez
[2018-01-29 12:24] VITALS: BP 135/75; PULSE 57
--- NOTE | 2018-01-29 13:41 | RAD ---
Date of service: 01/29/2018 PROCEDURE: Right Wrist Radiographs. HISTORY: PAIN COMPARISON: None. FINDINGS: BONES: Normal. No fracture. There appears to be small nonspecific benign cystic changes within the navicular and possibly the lunate and capitate.. JOINTS: Normal. No dislocation. SOFT TISSUES: Normal. OTHER FINDINGS: None. IMPRESSION: No evidence of acute displaced fracture nor dislocation. Suspect small cystic changes within the navicular and possibly within the lunate and capitate If symptoms persist or occult fracture suspected clinically, recommend repeat radiographs in 5-10 days as most fractures should become radiographically evident in this timeframe.
== END 2018-01-29 12:25 | disposition home or self-care (01) ==
LOC: C.ER 10:45
DX: S69.91XA Unspecified injury of right wrist, hand and finger(s), initial encounter (principal); X58.XXXA Exposure to other specified factors, initial encounter

== ENCOUNTER 2018-02-22 09:58 | Emergency (ER) | payer SELFPAY ==
[2018-02-22 09:58] VITALS: BMI 25.9
[2018-02-22 10:16] VITALS: BP 153/89; PULSE 63; RESP 18; TEMP 98; O2SAT 100
--- NOTE | 2018-02-22 10:24 | C.PDOC ---
History Of Present Illness 47 year old female presents to the ED for evaluation of left ear pain for 2 days. Denies fever, chills, nausea, vomiting, chest pain, abdominal pain, and any other associated symptoms. Time Seen by Provider: 02/22/18 10:16 Chief Complaint (Nursing): ENT Problem History Per: Patient History/Exam Limitations: None Onset/Duration Of Symptoms: Days Current Symptoms Are (Timing): Still Present Past Medical History Reviewed: Historical Data, Nursing Documentation, Vital Signs Vital Signs: Last Vital Signs Temp 98 F 02/22/18 10:13 Pulse 63 02/22/18 10:13 Resp 18 02/22/18 10:13 BP 153/89 H 02/22/18 10:13 Pulse Ox 100 02/22/18 10:13 - Medical History PMH: CHF, Gall Bladder Disease, HTN, Hypercholesterolemia, Kidney Stones, Pulmonary Embolism, Chronic Kidney Disease Surgical History: CABG (X4 2 years ago) - [employer] Procedures INSPECTION OF MOUTH AND THROAT, ENDO (09/14/16) Family History: States: Unknown Family Hx - Social History Hx Alcohol Use: No Hx Substance Use: No - Immunization History Hx Tetanus Toxoid Vaccination: No Hx Influenza Vaccination: No Hx Pneumococcal Vaccination: No Review Of Systems Constitutional: Negative for: Fever, Chills Eyes: Negative for: Pain, Vision Change ENT: Positive for: Ear Pain Cardiovascular: Negative for: Chest Pain, Palpitations, Edema, Light Headedness Respiratory: Negative for: Cough, Shortness of Breath, SOB with Excertion, Wheezing Gastrointestinal: Negative for: Nausea, Vomiting, Abdominal Pain Musculoskeletal: Negative for: Neck Pain Neurological: Negative for: Weakness, Numbness Physical Exam - Physical Exam Appears: Well, Non-toxic Skin: Normal Color, Warm, Dry Head: Atraumatic, Normacephalic Eye(s): bilateral: Normal Inspection Ear(s): Left: Other (L TM is ruptured with erythematous canal), Right: Normal Oral Mucosa: Moist Throat: Normal, No Erythema Neck: Normal ROM, Supple, Other (no mastoid tenderness. no external pinna tenderness) Chest: Symmetrical, No Deformity Cardiovascular: Rhythm Regular, No Murmur Respiratory: Normal Breath Sounds, No Rales, No Rhonchi, No Wheezing Gastrointestinal/Abdominal: Normal Exam, Soft, No Tenderness Back: Normal Inspection Extremity: Normal ROM Neurological/Psych: Oriented x3, Normal Speech Gait: Steady ED Course And Treatment O2 Sat by Pulse Oximetry: 100 (RA) Pulse Ox Interpretation: Normal Medical Decision Making Medical Decision Making: Plan: -Amoxicillin Motrin Progress/Update: Patient likely had ruptured TM from otitis media. Patient stable for discharge home. Prescribed Amoxicillin and Ciprodex. Disposition - Disposition Disposition: HOME/ ROUTINE Disposition Time: 10:21 Condition: GOOD Additional Instructions: Take full course of antibiotics and use drops. Return to ED if condition worsens. Follow-up with PMD within 2 days Prescriptions: RX: Amoxicillin 500 mg PO TID #30 tablet Ciprofloxacin/Dexamethasone [Ciprodex Otic] 3 drop BID #1 bottle Instructions: Ear Infections (Otitis Media), Ruptured Eardrum Forms: [employer] (Upper Sorbian) Print Language: LITHUANIAN - Clinical Impression Clinical Impression: Otitis media - Scribe Statement The provider has reviewed the documentation as recorded by the Scribe (Ceci Forte) Provider Attestation: All medical record entries made by the Scribe were at my direction and personally dictated by me. I have reviewed the chart and agree that the record accurately reflects my personal performance of the history, physical exam, medical decision making, and the department course for this patient. I have also personally directed, reviewed, and agree with the discharge instructions and disposition.
[2018-02-22] MEDS ORDERED: Amoxicillin-Clav 500-125 mg Tab PO ONE (10:31)
== END 2018-02-22 10:41 | disposition home or self-care (01) ==
LOC: C.ER 09:58
DX: H66.92 Otitis media, unspecified, left ear (principal); E78.00 Pure hypercholesterolemia, unspecified; I50.9 Heart failure, unspecified; I12.9 Hypertensive chronic kidney disease with stage 1 through stage 4 chronic kidney disease, or unspecified chronic kidney disease; N18.9 Chronic kidney disease, unspecified; Z87.442 Personal history of urinary calculi

== ENCOUNTER 2018-08-08 08:35 | Outpatient (CLI) | payer SELFPAY | END 2018-08-08 08:36 | disposition home or self-care (01) | LOC: C.CARD 08:35 | DX: I08.1 Rheumatic disorders of both mitral and tricuspid valves (principal); I25.2 Old myocardial infarction ==

== ENCOUNTER 2018-08-23 09:58 | Day surgery (SDC) | payer OTHER ==
[2018-07-29 09:20] VITALS: BMI 26.6
[2018-08-23] MEDS ORDERED: Ropivacaine 0.5% PF (20 ml) inj INJ ONE (11:55)
[2018-08-23] MEDS ORDERED: ceFAZolin 1 gm in NS 2 GM/200 ML BAG IVPB ONE (11:56)
[2018-08-23] MEDS ORDERED: Midazolam 2 MG/2 ML VIAL ONE ×2 (12:02→12:28)
[2018-08-23] MEDS ORDERED: Propofol 10 mg/ml Inj (20 ML) ONE ×3 (12:28→14:39)
[2018-08-23] MEDS ORDERED: Oxycodone/Acetaminophen 5/325 mg Tab PO PRN (15:19)
--- NOTE | 2018-08-23 15:19 | PCM.SURG1 ---
Surgeon's Initial Post Op Note - Surgeon's Notes Surgeon: Dr. Garcia [place] Scaler: Jose Hernandez PGY2 Type of Anesthesia: Block Regional, IV Sedation Anesthesia Administered By: JS Jacobo CRNA Pre-Operative Diagnosis: Non-union R scaphoid fracture Operative Findings: Non-union R scaphoid fracture Post-Operative Diagnosis: Non-union R scaphoid fracture Operation Performed: ORIF of Non-union R scaphoid fracture Specimen/Specimens Removed: N/A Estimated Blood Loss: EBL {In ML}: 5 Blood Products Given: N/A Drains Used: No Drains Post-Op Condition: Good Date of Surgery/Procedure: 08/23/18 Time of Surgery/Procedure: 15:18
[2018-08-23] MEDS ORDERED: HYDROmorphone 0.5 mg/0.5 ml ISec IVP PRN (15:20)
[2018-08-23 16:28] VITALS: RESP 18
[2018-08-23 16:58] VITALS: BP 121/71; PULSE 85; TEMP 97.8; O2SAT 99
--- NOTE | 2018-08-26 07:58 | PCM.ANESB1 ---
Interscalene Block - Brachial Plexus Date of Procedure: 08/23/18 Anesthesiologist: Naun Pre-Procedure Diagnosis: Right Scaphoid fracture Post-Procedure Diagnosis: s/p right scaphoid ORIF Procedure Performed: Interscalene Block of Brachial Plexus Right - Procedure Interscalene Block of Brachial Plexus: This procedure was explained to the patient that it is for introperative anes thesia and post-operative pain management. Consent was obtained after a thorough discussion with the patient regarding the benefits and possible complications of local anesthetic block of the Brachial Plexus at the supraclavicular area. After discussing all options of anesthesia with the patient and surgeon we all agreed to proceed with preoperative block and sedation given the patient's extensive cardiopulmonary history. Patient understands that this is not general anesthesia, we will keep him comfortable throughout, and patient may be aware of surgery as he will be receiving sedation. If patient for some reason is unable to tolerate the procedure, at that point we can convert to general anesthesia if necessary. All agree to plan. The patient was brought to the Operating Room and standard monitors were applied. Time out was held with the circulating nurse to confirm the correct surgery and appropriate block. After applying Oxygen by nasal cannula and administering IV Sedation, the patient's head was gently rotated away from the RIGHT operative arm and the right clavicle was palpated. The ultrasound transducer was then applied to the skin in the transverse plane and the brachial plexus was visualized lateral to the subclavian artery. After identification,the supraclavicular region was prepped with chloraprep solution and Lidocaine 1% was injected subcutaneously for topical analgesia. At this point, a Stimuplex 4 inch insulated needle was inserted above the clavicle and kept in view with ultrasound throughout. The needle was inserted lateral to the ultrasound transducer in-plane towards the brachial plexus in a [id number] direction. Needle advancement was performed carefully under direct ultrasound visualization. Nerve stimulator was used and twitched of the affected extremity including the hand brachialis muscles, biceps and the deltoid was obtained at a current of 0.5 MA, and appropriately lost as nerve stimulator decreased. After repeated negative aspiration,___5__cc of__0.5% ropivicaine,_were injected and this was followed with ____20_cc of _% _ropivicaine (in 5ml injections checking for negative aspiration throughout)_. Under ultrasound guidance the local anesthetics were observed surrounding the brachial plexus. The needle was removed intact and sterile dressing was applied. The patient had stable vital signs, was conscious and in no apparent distress. Patient gave feedback throughout, no pain or paresthesias reported. The patient tolerated the supraclavicular nerve block of the brachial plexus well with stable vital signs and was prepared for subsequent surgery. I was there for induction, mcgraw portions, and emergence. Patient did well throughout surgery, no pain, no complaints.
--- NOTE | 2018-08-29 10:43 | PCM.OP ---
Operative Report - Operative Report Date of Surgery/Procedure: 08/23/18 Time of Surgery/Procedure: 12:00 Surgeon: Pau Garcia Wrist Hemmer: Cintia Henderson Anesthesia/Sedation: Block and sedation Pre-Operative Diagnosis: Right scaphoid nonunion Post-Operative Diagnosis: Right scaphoid nonunion Indication for Surgery: 48 yo male with a right scaphoid nonunion. Treatment options reviewed. Due to patients desire to reduce pain and avoid the sequalae of untreated scaphoid fractures, operative treatment was elected. Risks of surgery including infection, pain, scarring, swelling, adhesions, stiffness, malunion, nonunion, damage to surrounding structures, and need for future procedures reviewed. Consent signed.Post-op pain plan and risk of narcotics reviewed. Operative Findings: Right scaphoid nonunion Procedure/Operation Description: The patient was identified in the holding area. His right hand was marked. He was brought into the operating room. The patient was laid supine on the operating room table, and was given sedation. The patient was administered 2 gr ams Ancef. His arm was then placed in a tourniquet and prepped and draped in a usual sterile fashion. Using an Esmarch, the arm was exsanguinated and tourniquet inflated to 250 mmHg of pressure for a total of 113 minutes.A 6 cm curvilinear volar wrist incision was made through the skin and dermis over the flexor carpi radialis (FCR) tendon and extending distally along the glabrous skin of the thenar eminence.The distal branch of the the radial artery was identified and cauterized. The FCR sheath was opened the tendon was swept ulnarly. The radial artery was identified and protected throughout the case.The volar extrinsic wrist ligaments were incised. The joint capsule was entered, exposing the scaphoid. Dissection over the distal dorsoradial scaphoid was avoided in order to protect the dorsal ridge vessel.The nonunion site between the proximal and distal fragments was identified with a freer elevator. Fluoroscopy was used to confirm the nonunion site.A rongeur was used to debride the scaphoid nonunion site. Additionally, a small portion of the trapezial lip was removed to allow access of the screw. Using a dental pick and freer elevator, the fracture was reduced and a 0.45 inch k-wire was driven longitudinally along the long axis of the scaphoid. Reduction was confirmed with X-rays. Next attention was paid to harvesting the distal radius bone graft. The pronator quadratus was identified and incised. The distal radius was perforated using a k-wire and then using a curved osteotome, a 1cm x 0.5cm bone graft was harvested. Additional, cancellous graft was harvested from the site. The k-wire in the scaphoid was measured, deducting 4 mm for final screw length, and then the wire was driven into the distal radius to secure it. Bone graft was packed into the nonunion void. The scaphoid was drilled and a headless compression screw was placed.Screw length and position was was confirmed with fluoroscopy. The void in the distal radius was packed with cancellous bone allograft. The bone and soft tissue were irrigated with saline. The tourniquet was deflated and hemostasis was confirmed.The volar wrist ligaments were carefully realigned and repaired with 2.0 Vicryl. The dermis and skin were closed with 4.0 monocryl. Skin glue was placed over the incision. A sterile dressing was applied and the patient was then placed in a thumb spica splint. The patient tolerated the procedure well, was transferred to a stretcher, and brought to recovery in stable condition. Estimated Blood Loss: negligible Complications: none Discharge & Condition: stable to home
== END 2018-08-23 17:18 | disposition home or self-care (01) ==
LOC: C.SDS 09:58
PROVIDERS: ATTEND Dentist Pediatric Dentistry
DX: S62.023 Displaced fracture of middle third of navicular [scaphoid] bone of unspecified wrist (principal); G89.18 Other acute postprocedural pain
CPT/HCPCS: 20900; 25440; J0690; J2250; J2704; J3010

== ENCOUNTER 2018-09-07 10:24 | Outpatient (CLI) | payer OTHER | END 2018-09-07 10:25 | disposition home or self-care (01) | LOC: C.RADH 10:24 ==